=== PATIENT | male | born 1970 ===

== ENCOUNTER 2020-07-15 14:39 | Emergency (ER) | payer OTHER, SELFPAY ==
--- NOTE | ~2020-07-15 | XR_ITS ---
EXAMINATION: XR LUMBOSACRAL SPINE CLINICAL INFORMATION: Work injury, back pain COMPARISON: None TECHNIQUE: Three views of the lumbosacral spine. FINDINGS: There is normal segmentation with 5 nonrib-bearing lumbar vertebrae of normal height and normal lumbar lordosis. There is no lumbar vertebral compression or fracture or destructive process. There are degenerative disc changes L5-S1 with mild disc narrowing and endplate sclerosis and anterior vertebral spurring. There is also mild disc narrowing at L4-L5. The SI joints and visualized sacrum are unremarkable. XR/XR lumbar spine 2-3V IMPRESSION: 1. Degenerative disc changes L5-S1 with disc narrowing and vertebral spurring. Mild disc narrowing L4-L5. 2. No vertebral compression or spondylolisthesis.
[2020-07-15 14:44] VITALS: BP 158/84; PULSE 94; O2SAT 98
[2020-07-15 15:36] VITALS: BP 134/69; PULSE 84; RESP 16; TEMP 36.7; O2SAT 99; BMI 30.4
--- NOTE | 2020-07-15 16:02 | ED_ITS ---
HPI - Back Pain/Injury General Chief Complaint: Back Pain/Injury Stated Complaint: BACK PAIN S/P LIFTING HEAVY OBJECT Time Seen by Provider: 07/15/20 16:00 Source: patient Mode of arrival: ambulatory Limitations: no limitations History of Present Illness HPI Narrative: 50-year-old male with past medical history of herniated disc status post surgical repair here with low back pain status post injury at work. Per patient he went to lift a walker and twisted to the left with immediate pain in his low back which radiates down into the left buttocks and down the left leg with intermittent numbness and tingling. No saddle anesthesia. No bowel or bladder incontinence. The patient is ambulatory. Related Data Previous Rx's Medication Instructions Recorded cyclobenzaprine 10 mg PO Q8H PRN #10 tab 07/15/20 lidocaine [Lidoderm] 1 patch TOPICAL DAILY #15 ea 07/15/20 naproxen 500 mg PO BID PRN #30 tab 07/15/20 prednisone 40 mg PO DAILY #10 tab 07/15/20 Allergies Allergy/AdvReac Type Severity Reaction Status Date / Time No Known Allergies Allergy Verified 07/15/20 15:36 Review of Systems Review of Systems: Yes all other systems are reviewed and are negative Constitutional: Constitutional: Reports no additional constitutional complaints, Denies body ache(s), Denies chills, Denies fever(s), Denies headache(s) and Denies weakness Eyes: Eyes: Reports no additional eye complaints and Denies change in vision ENT: Reports system reviewed and no additional complaints, except as documented, Denies dizziness, Denies headache(s), Denies nasal congestion, Denies nasal discharge and Denies neck pain Cardiovascular: Cardiovascular: Reports no additional cardiovascular complaints, Denies chest pain, Denies leg edema and Denies dyspnea Respiratory: Respiratory: Reports no additional respiratory complaints, Denies cough and Denies dyspnea Gastrointestinal: Gastrointestinal: Reports no additional gastrointestinal complaints, Denies abdominal pain, Denies diarrhea, Denies nausea and Denies vomiting Genitourinary: Genitourinary: Denies urinary incontinence Musculoskeletal: Musculoskeletal: Reports no additional musculoskeletal complaints, Reports back pain, Denies arthralgias, Denies joint swelling, Denies neck pain, Denies numbness and Denies tingling Integumentary/Breasts: Skin/Breast: Reports system reviewed and no additional complaints, except as docu and Denies rash Neurologic: Reports system reviewed and no additional complaints, except as documented, Denies Abnormal speech present, Denies dizziness, Denies headache(s), Denies numbness, Denies tingling and Denies weakness PMFSH Past Medical History Attestation statement: The following information was validated with the patient. Source: old records reviewed and nursing notes reviewed Medical History Disc herniation HTN (hypertension) Surgical History Previous back surgery Social History Social History Alcohol intake: never Smoked in Last 30 Days: No Use of substances other than those prescribed or required for medical reasons: No Any prior treatment program specific to substance use: No Advance Directives: No Advance Directives Information Provided: No Physical Exam Vital Signs: Vital Signs: Last Vital Signs Temp 98.1 F 07/15/20 15:36 Pulse 84 07/15/20 15:36 Resp 16 07/15/20 15:36 BP 134/69 07/15/20 15:36 Pulse Ox 99 07/15/20 15:36 Body Mass Index 30.4 Const: General: cooperative, healthy appearing, comfortable and no acute distress Orientation/consciousness: patient oriented x3 Limitations: no limitations HENMT: Head: Yes normal to inspection Ears: hearing grossly normal bilaterally General nose exam: Normal external nose present Face and sinus: Yes normal facial exam Mouth: Normal oral and palatal mucosa present Throat: Yes posterior oropharynx normal Eyes: General: appearance normal, both eyes and all related structures Pupils: Equal, round and reactive pupils present Neck: Neck: Yes normal visual inspection Chest: Chest palpation & inspection: normal inspection of the chest Resp: Effort & Inspection: normal respiratory effort Auscultation: clear to auscultation bilaterally Cardio: Rate: regular rate Rhythm: regular rhythm Peripheral pulses: Peripheral pulses 2+ throughout GI: Inspection: Yes normal to inspection Palpation (GI): Soft to palpation and nontender Auscultation: normal bowel sounds Back/Spine/Pelvis: Other: Mild lumbar midline tenderness with no step-offs or deformities. Pain over the lumbar lateral lower spine and left buttocks with radiation down the posterior left thigh. Pain with straight leg raise Thoracic/Lumbar Spine: thoracic and lumbar spine normal to inspection Skin: General skin exam: no rashes or lesions noted Neuro: General: patient oriented x3, no focal motor deficits and normal sensation to monofilament Cranial nerves: Yes Equal, round and reactive pupils present Cognition (Neuro): normal cognition Speech: No Abnormal speech present Gait exam (Neuro): Normal gait present Motor exam (neuro): 5/5 motor strength present throughout Sensory Exam: Normal double simultaneous stimulation for sensation Deep tendon reflexes (DTR's): Right patellar reflex intensity grade: 3+ and Left patellar reflex intensity grade: 3+ Coordination: [id number] test normal and [id number] test normal Extrem: General: Yes normal to inspection Course Course Course Narrative: Low back pain status post injury at work. Has midline tenderness so will check imaging. Provide analgesia and reassess. 174-x-rays show no acute abnormality. Due to history can consider herniated disc. Recommend follow-up with [facility] for further evaluation and possible MRI. No neurological deficits. No red flag symptoms. Reviewed worrisome signs and symptoms and when to return to the emergency department. Comfortable discharge home. MDM - Back Pain/Injury Medical Records Attestation: I reviewed the patient's medical records. Lab Data Attestation: I reviewed the patient's lab results. Imaging Data lumbar xray: Attestation: I personally reviewed and interpreted this imaging study as follows: Radiologist's impression: EXAMINATION: XR LUMBOSACRAL SPINE CLINICAL INFORMATION: Work injury, back pain COMPARISON: None TECHNIQUE: Three views of the lumbosacral spine. FINDINGS: There is normal segmentation with 5 nonrib-bearing lumbar vertebrae of normal height and normal lumbar lordosis. There is no lumbar vertebral compression or fracture or destructive process. There are degenerative disc changes L5-S1 with mild disc narrowing and endplate sclerosis and anterior vertebral spurring. There is also mild disc narrowing at L4-L5. The SI joints and visualized sacrum are unremarkable. XR/XR lumbar spine 2-3V IMPRESSION: 1. Degenerative disc changes L5-S1 with disc narrowing and vertebral spurring. Mild disc narrowing L4-L5. 2. No vertebral compression or spondylolisthesis. Discharge Plan Discharge Clinical Impression: Strain of lumbar region Patient Disposition: Home, Self-Care Instructions: Low Back Strain (ED), Lower Back Exercises (ED) Additional Instructions: Heat or ice Gentle stretching Follow-up with [facility] [phone] Prescriptions: New naproxen 500 mg tablet 500 mg PO BID PRN (Reason: pain) Qty: 30 RF: 0 cyclobenzaprine 10 mg tablet 10 mg PO Q8H PRN (Reason: muscle spasm) Qty: 10 RF: 0 lidocaine [Lidoderm] 5 % adhesive patch,medicated 1 patch topical DAILY Qty: 15 RF: 0 prednisone 20 mg tablet 40 mg PO DAILY Qty: 10 RF: 0 Referrals: Hailee Obrien MD [Primary Care Provider] - 2 days Stand Alone Forms: Work/School Release Interventions: ED Discharge Assessment Last Done: 07/15/20 17:37 Discharge Date/Time: 07/15/20 17:47 Print Language: Portuguese
[2020-07-15] MEDS: Ketorolac Tromethamine 60 MG/2 ML VIAL IM (16:34)
== END 2020-07-15 17:47 | disposition home or self-care (01) ==
PROVIDERS: Emergency Provider Emergency Medicine Emergency Medical Services; PCP Internal Medicine
DX: S39.012A Strain of muscle, fascia and tendon of lower back, initial encounter (principal); X50.0XXA Overexertion from strenuous movement or load, initial encounter; X50.3XXA Overexertion from repetitive movements, initial encounter; Y93.9 Activity, unspecified; Y92.9 Unspecified place or not applicable; Y99.0 Civilian activity done for income or pay; Z79.899 Other long term (current) drug therapy
CPT/HCPCS: 72100; 96372; 99284; J1885

== ENCOUNTER 2020-07-19 18:01 | Emergency (ER) | payer OTHER, SELFPAY ==
--- NOTE | 2020-07-19 | ECG_ITS ---
Test Reason : BACK PAIN Blood Pressure : / mmHG Vent. Rate : 092 BPM Atrial Rate : 092 BPM P-R Int : 144 ms QRS Dur : 096 ms QT Int : 348 ms P-R-T Axes : 052 -38 016 degrees QTc Int : 430 ms Normal sinus rhythm Left axis deviation Voltage criteria for left ventricular hypertrophy Abnormal ECG No previous ECGs available Referred By: Generic ED Physician Electronically Signed By:LUCIE MOSES
--- NOTE | ~2020-07-19 | CT_ITS ---
EXAMINATION: CT HEAD WITHOUT CONTRAST CLINICAL INFORMATION: Numbness, headache COMPARISON: None TECHNIQUE: Contiguous axial imaging was performed from the skull base to vertex without intravenous administration of contrast. This CT examination was performed using dose optimization techniques as appropriate, variously including the following: *Automated exposure control *Adjustment of mA and/or kV according to patient size (this includes techniques or standardized protocols for targeted exams where dose is matched to indication/reason for exam; i.e. extremities or head) *Use of iterative reconstruction technique DLP: 742 mGy-cm FINDINGS: There is no evidence of acute intracranial hemorrhage or territorial infarction. No abnormal mass effect or midline shift is seen. Gee to white matter differentiation is well preserved. No extra-axial fluid collections are identified. The ventricles are normal in size. There is no abnormal attenuation within the brain parenchyma. The osseous structures and soft tissues are normal. The mastoid air cells and visualized portions of the paranasal sinuses are well aerated. CT/CT head/brain wo con IMPRESSION: No acute intracranial pathology.
[2020-07-19 18:37] VITALS: BP 138/78; PULSE 96; RESP 16; TEMP 36.9; O2SAT 98; BMI 30.4
--- NOTE | 2020-07-19 20:28 | ED.GENADULT ---
HPI - General Adult General Chief complaint: General Medical Stated complaint: back/leg pain Time Seen by Provider: 07/19/20 20:38 Source: patient Mode of arrival: ambulatory Limitations: no limitations History of Present Illness HPI narrative: 50-year-old male presents with lower back injury sustained at work several days ago. Was evaluated in this emergency department and given cyclobenzaprine and prednisone. Patient reports multiple vague complaints, states that he feels like he might be having a heart attack, has tremors in in his hands and feels jittery, and has a headache with numbness and tingling to his hands and feet. He does not report any fevers or chills, palpitations, chest pain or pressure, abdominal pain, abdominal distention, dysuria, hematuria, symptoms indicating cauda equina, loss of balance, edema or any other concerning symptoms. Onset (ago): day(s) Severity: moderate Severity scale (1-10): 6 Pain Consistency: constant Relieving factors: none Exacerbating factors: movement Related Data Previous Rx's Medication Instructions Recorded cyclobenzaprine 10 mg PO Q8H PRN #10 tab 07/15/20 lidocaine [Lidoderm] 1 patch TOPICAL DAILY #15 ea 07/15/20 naproxen 500 mg PO BID PRN #30 tab 07/15/20 prednisone 40 mg PO DAILY #10 tab 07/15/20 Allergies Allergy/AdvReac Type Severity Reaction Status Date / Time No Known Allergies Allergy Verified 07/19/20 18:37 Review of Systems Review of Systems: Constitutional: No Weight loss, No Fever, No Chills, positive headache ENT/Mouth: No Hearing loss, No Ear Pain, No Nasal Congestion, No Sinus Pain, No Hoarseness, No sore throat, No Rhinorrhea, No Swallowing Difficulty Cardiovascular: No Chest Pain, No SOB Respiratory: No Cough, No Dyspnea Gastrointestinal: No Nausea, No Vomiting, No Diarrhea, No abdominal Pain, No Hematochezia, No Melena Genitourinary: No Dysuria, No Urinary Frequency, No Hematuria, No Urinary Incontinence, Musculoskeletal: positive back pain, positive numbness and tingling to extremities Skin: No Skin Lesions, No rash Neuro: No Weakness, No Numbness, No Paresthesias, no loss of bowel or bladder incontinence, no saddle anesthesia Yes all other systems are reviewed and are negative PMFSH Past Medical History Attestation statement: The following information was validated with the patient. Source: old records reviewed Medical History Disc herniation HTN (hypertension) Surgical History Previous back surgery Social History Social History Alcohol intake: never Advance Directives: No Advance Directives Information Provided: No Physical Exam Vital Signs: Vital Signs: Last Vital Signs Temp 97.7 F 07/19/20 23:58 Pulse 79 07/19/20 23:58 Resp 18 07/19/20 23:58 BP 148/70 H 07/19/20 23:58 Pulse Ox 98 07/19/20 23:58 Body Mass Index 30.4 Appearance: Alert. Oriented X3. No acute distress. Head: Normal external exam. Normocephalic. Atraumatic. No Pineda signs noted. No raccoon eyes noted Eyes: PERRLA. EOMI. Conjunctiva and sclera normal. Eyelids normal. ENT: TM's Normal. Pharynx normal. Uvula midline. Moist mucous membranes. No trismus noted. No drooling noted. No muffled voice noted. Neck: Normal inspection. Neck supple. No adenopathy. Thyroid Normal. No meningeal signs. No neck mass noted. CVS: Normal heart rate and rhythm. Heart sound normal. No murmurs noted. Pulses equal to all extremities. Respiratory: No respiratory distress. Painless inspiration. Breath sounds normal. No wheezes/rales/rhonchi noted. Chest nontender. No accessory muscle usage noted or decreased air movement noted. Abdomen: Soft and nontender. Bowel sounds normal in all 4 quadrants. No distention noted. No organomegaly noted. No visible injury noted. Back: No CVA tenderness. Full range of motion noted. Skin: Skin warm and dry. Normal skin color. Normal skin turgor. No rashes/lesions/lacerations noted. Extremities: No lower extremity edema. Extremities exhibit normal range of motion. Extremities nontender. Neuro: cranial nerves 2-12 intact, no focal neural deficits, strength 5/5 to all extremities, No motor deficit. No sensory deficit. Reflexes normal. NIH Stroke Scale Internal: Initial- Upon Arrival Level of Consciousness: Alert Level of Consciousness Questions: Answers both questions correctly Level of Consciousness Commands: Performs both tasks correctly Best Gaze: Normal Visual: No visual loss Facial Palsy: Normal Motor Arm (Right): No drift Motor Arm (Left): No drift Motor Leg (Right): No drift Motor Leg (Left): No drift Limb Ataxia: Absent Sensory: Normal Best Language: No aphasia Dysarthia: Normal Extinction and Inattention: No abnormality Score: 0 Course Course Course Narrative: 50-year-old male presents with complaints. Was seen several days ago for lower back injury sustained at work. He was asked to follow up with work [facility] however he feels that his symptoms are severe enough to return to the emergency department. He states ?I feel like I am having a heart attack? although he is not describing any chest pain or pressure, palpitations, diaphoresis, or any other concerning symptoms. He does state that he has a headache feels numbness tingling and tremors throughout his extremities equally. Will rule out ACS and CVA. Patient does not have any focal neural deficits, stroke scale is 0, strength 5/5 to all extremities, equal sensation, gait well balanced well coordinated, no indication of cerebellar deficit. Negative Romberg. EKG normal sinus, troponins negative, CT scan of head negative for acute findings requiring emergent intervention. Labs indicated elevated blood sugar which is consistent with his prednisone use. I feel that these symptoms could be related to side effects associated prednisone. Patient has completed his course. Detailed discussion with patient stating that this is not an allergic reaction. palliative senior np utilized for all correspondence. Google translate utilized for discharge instructions. Medical Decision Making Differential Diagnosis Differential Diagnosis: CVA, ACS, adverse reaction from prednisone, Medical Records Medical records reviewed: Yes I reviewed the patient's medical records. Lab Data Lab results reviewed: Yes I reviewed the patient's lab results. Result diagrams: 07/19/20 21:30 07/19/20 21:30 Labs: Lab Results 07/19/20 07/19/20 07/19/20 Range/Units 21:07 21:30 21:30 WBC 9.6 (4.8-10.8) X10*3/uL RBC 4.89 (4.60-5.80) X10*6/uL Hgb 15.0 (14.0-18.0) g/dl Hct 45.4 (42-52) % MCV 92.8 (80-98) fL MCH 30.7 (27.0-33.0) pg MCHC 33.0 (31.0-36.0) g/dl RDW 12.8 (11.0-16.0) % Plt Count 251 (160-400) X10*3/uL MPV 10.3 (9.4-12.4) fL Immature Gran % (Auto) 1.6 H (0.0-0.4) % Neut % (Auto) 76.5 H (45-73) % Lymph % (Auto) 13.9 L (20-40) % [place] % (Auto) 7.4 (2-11) % Eos % (Auto) 0.1 (0-4) % Baso % (Auto) 0.5 (0-2) % Lymph # (Auto) 1.3 (1.2-4.9) X10*3/uL [place] # (Auto) 0.7 (0.1-1.2) X10*3/uL Eos # (Auto) 0.0 (0.0-0.4) X10*3/uL Baso # (Auto) 0.1 (0.0-0.2) X10*3/uL Abs Immat Gran (auto) 0.15 H (0.00-0.03) X10*3/uL Absolute Neuts (auto) 7.3 (2.0-8.3) X10*3/uL Absolute Nucleated RBC 0.000 (0.0-0.012) X10*3/uL Nucleated RBC % (auto) 0.0 (0.0-0.2) /100WBC Sodium 141 (135-145) mmol/L Potassium 4.8 (3.3-5.1) mmol/L Chloride 102 (96-108) mmol/L Carbon Dioxide 28 (22-29) mmol/L Anion Gap 16 (12-20) BUN 19 H (9-16) mg/dL Creatinine 0.84 (0.5-1.4) mg/dL Estim Creat Clear Calc 117.6 Estimated GFR > 60 POC Glucose 119 H (60-115) mg/dL Random Glucose 111 (60-115) mg/dL Calcium 9.1 (8.4-10.2) mg/dL Troponin I High Sens (<3.5-35.0) ng/L Urine Color Urine Appearance Urine pH (5.0-8.0) Ur Specific [place] (1.005-1.025) Urine Protein (NEG-TRACE) MG/DL Urine Glucose (UA) (NEG) MG/DL Urine Ketones (NEG) MG/DL Urine Blood (NEG) Urine Nitrite (NEG) Ur Leukocyte Esterase (NEG) 07/19/20 07/19/20 Range/Units 21:30 21:30 WBC (4.8-10.8) X10*3/uL RBC (4.60-5.80) X10*6/uL Hgb (14.0-18.0) g/dl Hct (42-52) % MCV (80-98) fL MCH (27.0-33.0) pg MCHC (31.0-36.0) g/dl RDW (11.0-16.0) % Plt Count (160-400) X10*3/uL MPV (9.4-12.4) fL Immature Gran % (Auto) (0.0-0.4) % Neut % (Auto) (45-73) % Lymph % (Auto) (20-40) % [place] % (Auto) (2-11) % Eos % (Auto) (0-4) % Baso % (Auto) (0-2) % Lymph # (Auto) (1.2-4.9) X10*3/uL [place] # (Auto) (0.1-1.2) X10*3/uL Eos # (Auto) (0.0-0.4) X10*3/uL Baso # (Auto) (0.0-0.2) X10*3/uL Abs Immat Gran (auto) (0.00-0.03) X10*3/uL Absolute Neuts (auto) (2.0-8.3) X10*3/uL Absolute Nucleated RBC (0.0-0.012) X10*3/uL Nucleated RBC % (auto) (0.0-0.2) /100WBC Sodium (135-145) mmol/L Potassium (3.3-5.1) mmol/L Chloride (96-108) mmol/L Carbon Dioxide (22-29) mmol/L Anion Gap (12-20) BUN (9-16) mg/dL Creatinine (0.5-1.4) mg/dL Estim Creat Clear Calc Estimated GFR POC Glucose (60-115) mg/dL Random Glucose (60-115) mg/dL Calcium (8.4-10.2) mg/dL Troponin I High Sens < 3.5 (<3.5-35.0) ng/L Urine Color YELLOW Urine Appearance CLEAR Urine pH 6.5 (5.0-8.0) Ur Specific [place] 1.025 (1.005-1.025) Urine Protein NEG (NEG-TRACE) MG/DL Urine Glucose (UA) NEG (NEG) MG/DL Urine Ketones NEG (NEG) MG/DL Urine Blood NEG (NEG) Urine Nitrite NEG (NEG) Ur Leukocyte Esterase NEG (NEG) Imaging Data CT scan - head: Attestation: I personally reviewed and interpreted this imaging study as follows: Radiologist's impression: EXAMINATION: CT HEAD WITHOUT CONTRAST CLINICAL INFORMATION: Numbness, headache COMPARISON: None TECHNIQUE: Contiguous axial imaging was performed from the skull base to vertex without intravenous administration of contrast. This CT examination was performed using dose optimization techniques as appropriate, variously including the following: *Automated exposure control *Adjustment of mA and/or kV according to patient size (this includes techniques or standardized protocols for targeted exams where dose is matched to indication/reason for exam; i.e. extremities or head) *Use of iterative reconstruction technique DLP: 742 mGy-cm FINDINGS: There is no evidence of acute intracranial hemorrhage or territorial infarction. No abnormal mass effect or midline shift is seen. Gee to white matter differentiation is well preserved. No extra-axial fluid collections are identified. The ventricles are normal in size. There is no abnormal attenuation within the brain parenchyma. The osseous structures and soft tissues are normal. The mastoid air cells and visualized portions of the paranasal sinuses are well aerated. CT/CT head/brain wo con IMPRESSION: No acute intracranial pathology. ECG Data Attestation: I personally reviewed and interpreted this ECG as follows: Prior ECG tracings: not available for review Interpretation: Ventricular rate 92 beats per minute, TN 144, QRS 96, QT 348, QTC 430, normal sinus rhythm, left axis deviation, low voltage criteria for LVH. No indication of ST elevation or depression, prior EKGs unavailable secondary to system 130 error. July 19, 2020, time 7:05 p.m. Scores Heart Score History: -0- slightly suspicious ECG: -1- non specific repolarization disturbance Age: -1- >45 - <65 Risk factory: -1- 1 or 2 risk factors Troponin: -0- < or = normal limit Score: 3 Risk: 1.7% Discharge Plan Discharge Clinical Impression: Medication side effect Patient Disposition: Home, Self-Care Instructions: Normal Exam (ED) Additional Instructions: Te evaluaron por entumecimiento, hormigueo y dolor de ryanne. La tomograf?a computarizada de wu ryanne fue negativa para hallazgos agudos. Es posible que los s?ntomas est?n relacionados con el uso de prednisona. Lo que wu descripci?n son efectos secundarios del medicamento esteroide llamado prednisona que se le alyse en wu ?ltima visita. Si nuestros an?lisis de daniel lulú normales, wu electrocardiograma era normal, emperatriz enzimas card?acas son negativas. Por favor, shawna un seguimiento con la conexi?n de trabajo. Es posible que necesites fisioterapia para el dolor lumbar. Contin?e todos los medicamentos excepto la prednisona. Eli por elegir juancarlos departamento de emergencias para wu evaluaci?n. Por favor, shawna un seguimiento con el m?dico de atenci?n primaria seg?n sea necesario. Regrese al servicio de emergencias para cualquier s?ntoma nuevo, preocupante o que empeore. You were evaluated for numbness, tingling, and headache. CT scan of her head was negative for acute findings. Your symptoms might be related to prednisone use. What your describing are side effects of the steroid medication called prednisone which was given to you on your last visit. Your blood tests were normal, your EKG was normal, your cardiac enzymes are negative. Please follow-up with [facility]. You may need physical therapy for lower back pain. Continue all medications except for the prednisone. Thank you for choosing this emergency department for evaluation. Please follow-up with primary care physician as needed. Return to the emergency department for any new, concerning, or worsening symptoms. Prescriptions: No Action naproxen 500 mg tablet 500 mg PO BID PRN (Reason: pain) Qty: 30 RF: 0 cyclobenzaprine 10 mg tablet 10 mg PO Q8H PRN (Reason: muscle spasm) Qty: 10 RF: 0 lidocaine [Lidoderm] 5 % adhesive patch,medicated 1 patch topical DAILY Qty: 15 RF: 0 prednisone 20 mg tablet 40 mg PO DAILY Qty: 10 RF: 0 Interventions: ED Discharge Assessment Last Done: 07/20/20 00:24 Discharge Date/Time: 07/20/20 00:26
[2020-07-19 21:04] VITALS: BP 142/86; PULSE 94; RESP 16; TEMP 37.1; O2SAT 99
[2020-07-19 21:11] LABS: Glucose, Whole Blood 119 mg/dL (60-115)
--- NOTE | 2020-07-19 21:34 | PC.NURSE ---
POC, labs and urine obtained by wind technician. Awaiting results.
[2020-07-19 21:38] LABS: Basophils Absolute Auto 0.1 X10*3/uL (0.0-0.2); Basophils Percent Auto 0.5 % (0-2); Eosinophils Percent Auto 0.1 % (0-4); Hematocrit 45.4 % (42-52); Imm Gran Abs Auto 0.15 X10*3/uL (0.00-0.03); Imm Gran Pct Auto 1.6 % (0.0-0.4); Lymphocytes Absolute Auto 1.3 X10*3/uL (1.2-4.9); Lymphocytes Percent Auto 13.9 % (20-40); MANUAL DIFF FLAG NO; Mean Corpuscular Hemoglobin 30.7 pg (27.0-33.0); Mean Corpuscular Volume 92.8 fL (80-98); Mean Platelet Volume 10.3 fL (9.4-12.4); Monocytes Absolute Auto 0.7 X10*3/uL (0.1-1.2); Monocytes Percent Auto 7.4 % (2-11); Neutrophils Absolute Auto 7.3 X10*3/uL (2.0-8.3); Neutrophils Percent Auto 76.5 % (45-73); Platelet Count 251 X10*3/uL (160-400); Red Blood Count 4.89 X10*6/uL (4.60-5.80); Red Cell Distribution Width 12.8 % (11.0-16.0); White Blood Count 9.6 X10*3/uL (4.8-10.8)
[2020-07-19 21:42] LABS: Glucose Urine UA NEG (NEG); Leukocyte Esterase Urine NEG (NEG); Nitrite Urine NEG (NEG); PH 6.5 (5.0-8.0); Specific Gravity - Urine 1.025 (1.005-1.025); Urine Blood NEG (NEG); Urine Ketones NEG (NEG); Urine Protein NEG (NEG-TRACE)
[2020-07-19 21:43] LABS: Appearance Urine CLEAR; Color Urine YELLOW
[2020-07-19 21:49] VITALS: BP 155/79; PULSE 84; RESP 16; TEMP 37; O2SAT 99
[2020-07-19 21:55] LABS: Anion Gap 16 (12-20); Blood Urea Nitrogen 19 mg/dL (9-16); Calcium 9.1 mg/dL (8.4-10.2); Carbon Dioxide 28 mmol/L (22-29); Chloride 102 mmol/L (96-108); Creatinine Clr Calc Pharmacy 117.6; Estimated Glomerular Filt Rate > 60; Glucose Random 111 mg/dL (60-115); Potassium 4.8 mmol/L (3.3-5.1); Sodium 141 mmol/L (135-145)
[2020-07-19 22:03] LABS: Troponin-I High Sensitivity < 3.5 ng/L (<3.5-35.0)
--- NOTE | 2020-07-19 23:55 | PC.NURSE ---
CASHIER AND SALESPERSON and resource management specialist at bedside discussing results and plan of care.
[2020-07-19 23:58] VITALS: BP 148/70; PULSE 79; RESP 18; TEMP 36.5; O2SAT 98
== END 2020-07-20 00:26 | disposition home or self-care (01) ==
PROVIDERS: Nurse Practitioner Family; Emergency Provider Emergency Medicine; PCP Internal Medicine
DX: G25.1 Drug-induced tremor (principal); G44.40 Drug-induced headache, not elsewhere classified, not intractable; T38.0X5A Adverse effect of glucocorticoids and synthetic analogues, initial encounter; Y92.009 Unspecified place in unspecified non-institutional (private) residence as the place of occurrence of the external cause; I10 Essential (primary) hypertension; I48.0 Paroxysmal atrial fibrillation; F41.9 Anxiety disorder, unspecified; G57.00 Lesion of sciatic nerve, unspecified lower limb
CPT/HCPCS: 36415; 70450; 80048; 81003; 82947; 84484; 85025; 93005; 99283; 99284

== ENCOUNTER 2020-07-23 08:16 | Outpatient (REF) | payer OTHER, SELFPAY ==
[2020-07-23 09:42] LABS: MANUAL DIFF FLAG NO
[2020-07-23 09:46] LABS: Basophils Absolute Auto 0.1 X10*3/uL (0.0-0.2); Basophils Percent Auto 1.3 % (0-2); Eosinophils Absolute Auto 0.2 X10*3/uL (0.0-0.4); Hematocrit 43.4 % (42-52); Hemoglobin 14.5 g/dl (14.0-18.0); Imm Gran Abs Auto 0.19 X10*3/uL (0.00-0.03); Imm Gran Pct Auto 3.6 % (0.0-0.4); Lymphocytes Absolute Auto 1.6 X10*3/uL (1.2-4.9); Lymphocytes Percent Auto 29.4 % (20-40); Mean Corpuscular HGB Conc 33.4 g/dl (31.0-36.0); Mean Corpuscular Hemoglobin 31.3 pg (27.0-33.0); Mean Corpuscular Volume 93.7 fL (80-98); Mean Platelet Volume 10.8 fL (9.4-12.4); Monocytes Absolute Auto 0.6 X10*3/uL (0.1-1.2); Monocytes Percent Auto 11.3 % (2-11); Neutrophils Absolute Auto 2.7 X10*3/uL (2.0-8.3); Neutrophils Percent Auto 51.4 % (45-73); Platelet Count 226 X10*3/uL (160-400); Red Blood Count 4.63 X10*6/uL (4.60-5.80); White Blood Count 5.3 X10*3/uL (4.8-10.8)
[2020-07-23 10:12] LABS: Alanine Aminotransferase 32 U/L (0-40); Albumin Level 4.2 g/dL (3.5-5.0); Alkaline Phosphatase 58 U/L (39-117); Anion Gap 12 (12-20); Aspartate Amino Transferase 19 U/L (5-37); Bilirubin Total 0.4 mg/dL (0.0-1.0); Blood Urea Nitrogen 22 mg/dL (9-16); Calcium 9.1 mg/dL (8.4-10.2); Carbon Dioxide 30 mmol/L (22-29); Chloride 102 mmol/L (96-108); Cholesterol 196 mg/dL; Estimated Glomerular Filt Rate > 60; Glucose Fasting 95 mg/dL (60-99); HDL Cholesterol 51 mg/dL; LDL Cholesterol Calculated 127 mg/dl; Potassium 5.4 mmol/L (3.3-5.1); Sodium 139 mmol/L (135-145); Total Protein 7.1 g/dL (6.5-8.0); Triglycerides 94 mg/dL
[2020-07-23 10:34] LABS: Thyroid Stimulating Hormone 0.86 uIU/mL (0.32-4.0)
== END 2020-07-23 08:17 | disposition home or self-care (01) ==
LOC: HO.LAB 08:16
PROVIDERS: PCP Internal Medicine; Visit Provider Internal Medicine
DX: D64.9 Anemia, unspecified (principal); I48.0 Paroxysmal atrial fibrillation; I10 Essential (primary) hypertension; E78.5 Hyperlipidemia, unspecified
CPT/HCPCS: 36415; 80053; 80061; 84443; 85025

== ENCOUNTER 2020-07-23 12:46 | Emergency (ER) | payer OTHER, SELFPAY ==
--- NOTE | ~2020-07-23 | XR_ITS ---
EXAMINATION: XR CHEST CLINICAL INFORMATION: Chest pain COMPARISON: None TECHNIQUE: Frontal view of the chest was obtained. FINDINGS: No convincing evidence for an acute process. No obvious failure or infiltrate. There is no effusion. Likely degenerative change at the first costochondral articulations. The mediastinal contours are within normal limits. XR/XR chest 1V IMPRESSION: No convincing evidence for an acute process.
[2020-07-23 12:50] VITALS: BP 143/85; PULSE 87; RESP 18; TEMP 36.7; O2SAT 99; BMI 73.7
[2020-07-23 16:35] VITALS: BP 144/72; PULSE 99; RESP 16; O2SAT 100
[2020-07-23 16:51] LABS: MANUAL DIFF FLAG NO
[2020-07-23 16:55] LABS: Basophils Absolute Auto 0.1 X10*3/uL (0.0-0.2); Basophils Percent Auto 0.7 % (0-2); Eosinophils Absolute Auto 0.2 X10*3/uL (0.0-0.4); Eosinophils Percent Auto 2.1 % (0-4); Hematocrit 45.6 % (42-52); Hemoglobin 14.9 g/dl (14.0-18.0); Imm Gran Abs Auto 0.15 X10*3/uL (0.00-0.03); Imm Gran Pct Auto 2.1 % (0.0-0.4); Lymphocytes Absolute Auto 2.2 X10*3/uL (1.2-4.9); Lymphocytes Percent Auto 31.4 % (20-40); Mean Corpuscular HGB Conc 32.7 g/dl (31.0-36.0); Mean Corpuscular Hemoglobin 30.2 pg (27.0-33.0); Mean Corpuscular Volume 92.3 fL (80-98); Monocytes Absolute Auto 0.7 X10*3/uL (0.1-1.2); Monocytes Percent Auto 9.6 % (2-11); Neutrophils Absolute Auto 3.9 X10*3/uL (2.0-8.3); Neutrophils Percent Auto 54.1 % (45-73); Platelet Count 240 X10*3/uL (160-400); Red Blood Count 4.94 X10*6/uL (4.60-5.80); White Blood Count 7.1 X10*3/uL (4.8-10.8)
[2020-07-23 17:25] LABS: Troponin-I High Sensitivity < 3.5 ng/L (<3.5-35.0)
[2020-07-23 17:43] LABS: Anion Gap 19 (12-20); Blood Urea Nitrogen 19 mg/dL (9-16); Calcium 9.4 mg/dL (8.4-10.2); Carbon Dioxide 23 mmol/L (22-29); Chloride 102 mmol/L (96-108); Creatinine Clr Calc Pharmacy 187.3; Estimated Glomerular Filt Rate > 60; Glucose Random 88 mg/dL (60-115); Potassium 4.7 mmol/L (3.3-5.1); Sodium 139 mmol/L (135-145)
[2020-07-23 18:58] VITALS: BP 145/76; PULSE 92; RESP 20; O2SAT 98
--- NOTE | 2020-07-23 19:48 | ED.CHESTPAIN ---
HPI - Chest Pain General Chief Complaint: Chest Pain Stated Complaint: CHEST PAIN Time Seen by Provider: 07/23/20 19:47 History of Present Illness HPI narrative: Patient is a 50-year-old male presents today with having left-sided chest pressure that lasted for about 15 minutes. Not associated with diaphoresis. It was constant. Patient was driving at the time. Patient feels slight shortness of breath. No coughing or congestion or upper respiratory symptoms. No leg swelling. No history of blood clots. Patient denies any fever chills. Positive history of hypertension. Patient is not a smoker. No high cholesterol. No recreational drug use. No family history of heart attack. No history of ME himself. Related Data Previous Rx's Medication Instructions Recorded lisinopril 30 mg tablet 30 mg PO DAILY 90 Days #90 tab 07/22/20 metoprolol succinate 25 mg 25 mg PO DAILY 90 Days #90 tab 07/22/20 tablet,extended release 24 hr Allergies Allergy/AdvReac Type Severity Reaction Status Date / Time No Known Allergies Allergy Verified 07/22/20 16:03 Review of Systems Review of Systems: Constitutional: No Weight loss, No Fever, No Chills, No Night Sweats, No Fatigue, No Malaise ENT/Mouth: No Hearing loss, No Ear Pain, No Nasal Congestion, No Sinus Pain, No Hoarseness, No sore throat, No Rhinorrhea, No Swallowing Difficulty Eyes: No Eye Pain, No Swelling, No Redness, No Foreign Body, No Discharge, No Vision Changes Cardiovascular: Positive chest pressure, No SOB, No Dyspnea on Exertion, No Orthopnea, No Edema, No Palpitations Respiratory: No Cough, No Sputum, No Wheezing, No Smoke Exposure, No Dyspnea Gastrointestinal: No Nausea, No Vomiting, No Diarrhea, No Constipation, No abdominal Pain, No Hematochezia, No Melena Genitourinary: no irregular bleeding, No Dysuria, No Urinary Frequency, No Hematuria, No Urinary Incontinence, No Urgency, No Flank Pain, No Urinary Flow Changes, No Hesitancy Musculoskeletal: No joint pain, No Myalgias, No Joint Swelling Skin: No Skin Lesions, No rash Neuro: No Weakness, No Numbness, No Paresthesias, No Loss of Consciousness, No Dizziness, No Headache Psych: No Anxiety/Panic, No Depression, No SI/HI/AH/VH, No Social Issues, Heme/Lymph: No Bruising, No Bleeding,No Lymphadenopathy Endocrine: No Polyuria, No Polydipsia, No Temperature Intolerance [facility] Past Medical History Attestation statement: The following information was validated with the patient. Medical History Anxiety Disc herniation Essential hypertension HTN (hypertension) Paroxysmal atrial fibrillation Piriformis syndrome Surgical History Previous back surgery Family History Family History Mother Hypertension Alzheimer disease Father Hypertension Hx of colon cancer, stage III Social History Social History Alcohol intake: current Alcohol intake frequency: a few times a month Alcohol type: beer Smoking Status: Never smoker Tobacco Type: Cigarette Use of substances other than those prescribed or required for medical reasons: No Advance Directives: No Advance Directives Information Provided: No Physical Exam Vital Signs: Vital Signs: Last Vital Signs Temp 98.0 F 07/23/20 12:50 Pulse 92 07/23/20 18:58 Resp 20 07/23/20 18:58 BP 145/76 H 07/23/20 18:58 Pulse Ox 98 07/23/20 18:58 Body Mass Index 73.7 Appearance: Alert. Oriented X3. No acute distress. Eyes: Pupils equal, round and reactive to light. ENT: Pharynx normal. Neck: Normal inspection. Neck supple. No lymph nodes noted. No crepitus CVS: Normal heart rate and rhythm. Pulses normal. Normal S1 and S2 Respiratory: No respiratory distress. Breath sounds normal. No Wheezing. No rales Abdomen: Soft and nontender. No rigidity. No distention. good BS x4 Skin: Skin warm and dry. Normal skin color. Normal skin turgor. Extremities: No lower extremity edema. Neurovascular intact to all extremities. No Lacerations. No Rash Neuro: Oriented X 3. No motor deficit. No sensory deficit. Moving all extermities. No slurred speech MDM - Chest Pain MDM Narrative Medical decision making narrative: Well-appearing no acute distress. Lungs are clear, chest x-ray showed no focal infiltrate. Patient's 1st set of troponin is negative. Will get a D-dimer to rule out the possibility of PE. History not consistent with PE. A 2nd set of troponin will be ordered. Pain is atypical for ACS. Patient's EKG is normal. Given his age 1 cardiac risk factor heart score is less than 3 Patient's D-dimer is negative. In the setting of low wrist unlikely to have PE. Two sets of cardiac enzymes negative patient well-appearing will discharge home Medical Records Data Attestation: I reviewed the patient's medical records. Lab Data Attestation: I reviewed the patient's lab results. Result diagrams: 07/23/20 16:44 07/23/20 16:44 Labs: Lab Results 07/23/20 07/23/20 07/23/20 Range/Units 16:44 16:44 16:44 WBC 7.1 (4.8-10.8) X10*3/uL RBC 4.94 (4.60-5.80) X10*6/uL Hgb 14.9 (14.0-18.0) g/dl Hct 45.6 (42-52) % MCV 92.3 (80-98) fL MCH 30.2 (27.0-33.0) pg MCHC 32.7 (31.0-36.0) g/dl RDW 13.0 (11.0-16.0) % Plt Count 240 (160-400) X10*3/uL MPV 10.0 (9.4-12.4) fL Immature Gran % (Auto) 2.1 H (0.0-0.4) % Neut % (Auto) 54.1 (45-73) % Lymph % (Auto) 31.4 (20-40) % [place] % (Auto) 9.6 (2-11) % Eos % (Auto) 2.1 (0-4) % Baso % (Auto) 0.7 (0-2) % Lymph # (Auto) 2.2 (1.2-4.9) X10*3/uL [place] # (Auto) 0.7 (0.1-1.2) X10*3/uL Eos # (Auto) 0.2 (0.0-0.4) X10*3/uL Baso # (Auto) 0.1 (0.0-0.2) X10*3/uL Abs Immat Gran (auto) 0.15 H (0.00-0.03) X10*3/uL Absolute Neuts (auto) 3.9 (2.0-8.3) X10*3/uL Absolute Nucleated RBC 0.000 (0.0-0.012) X10*3/uL Nucleated RBC % (auto) 0.0 (0.0-0.2) /100WBC D-Dimer NG/ML Hold Blue Top SEE NOTE Sodium 139 (135-145) mmol/L Potassium 4.7 (3.3-5.1) mmol/L Chloride 102 (96-108) mmol/L Carbon Dioxide 23 (22-29) mmol/L Anion Gap 19 (12-20) BUN 19 H (9-16) mg/dL Creatinine 0.88 (0.5-1.4) mg/dL Estim Creat Clear Calc 187.3 Estimated GFR > 60 Random Glucose 88 (60-115) mg/dL Calcium 9.4 (8.4-10.2) mg/dL Troponin I High Sens (<3.5-35.0) ng/L 07/23/20 07/23/20 07/23/20 Range/Units 16:44 19:57 19:57 WBC (4.8-10.8) X10*3/uL RBC (4.60-5.80) X10*6/uL Hgb (14.0-18.0) g/dl Hct (42-52) % MCV (80-98) fL MCH (27.0-33.0) pg MCHC (31.0-36.0) g/dl RDW (11.0-16.0) % Plt Count (160-400) X10*3/uL MPV (9.4-12.4) fL Immature Gran % (Auto) (0.0-0.4) % Neut % (Auto) (45-73) % Lymph % (Auto) (20-40) % [place] % (Auto) (2-11) % Eos % (Auto) (0-4) % Baso % (Auto) (0-2) % Lymph # (Auto) (1.2-4.9) X10*3/uL [place] # (Auto) (0.1-1.2) X10*3/uL Eos # (Auto) (0.0-0.4) X10*3/uL Baso # (Auto) (0.0-0.2) X10*3/uL Abs Immat Gran (auto) (0.00-0.03) X10*3/uL Absolute Neuts (auto) (2.0-8.3) X10*3/uL Absolute Nucleated RBC (0.0-0.012) X10*3/uL Nucleated RBC % (auto) (0.0-0.2) /100WBC D-Dimer < 200 NG/ML Hold Blue Top Sodium (135-145) mmol/L Potassium (3.3-5.1) mmol/L Chloride (96-108) mmol/L Carbon Dioxide (22-29) mmol/L Anion Gap (12-20) BUN (9-16) mg/dL Creatinine (0.5-1.4) mg/dL Estim Creat Clear Calc Estimated GFR Random Glucose (60-115) mg/dL Calcium (8.4-10.2) mg/dL Troponin I High Sens < 3.5 < 3.5 (<3.5-35.0) ng/L Discharge Plan Discharge Clinical Impression: Chest pain Patient Disposition: Home, Self-Care Instructions: Chest Pain (ED) Prescriptions: No Action lisinopril 30 mg tablet 30 mg PO DAILY 90 Days Qty: 90 RF: 1 metoprolol succinate 25 mg tablet extended release 24 hr 25 mg PO DAILY 90 Days Qty: 90 RF: 3 Referrals: Hailee Obrien MD [Primary Care Provider] - 2 days Print Language: Kinyarwanda
[2020-07-23 20:20] LABS: D Dimer < 200 NG/ML
[2020-07-23 20:38] LABS: Troponin-I High Sensitivity < 3.5 ng/L (<3.5-35.0)
--- NOTE | 2020-07-24 | ECG_ITS ---
Test Reason : CHEST PAIN Blood Pressure : / mmHG Vent. Rate : 082 BPM Atrial Rate : 082 BPM P-R Int : 142 ms QRS Dur : 096 ms QT Int : 374 ms P-R-T Axes : 041 -37 011 degrees QTc Int : 436 ms Normal sinus rhythm Left axis deviation Voltage criteria for left ventricular hypertrophy Abnormal ECG When compared with ECG of 19-JUL-2020 19:05, No significant change was found Referred By: Kay Delgado Electronically Signed By:Christiano Saha
== END 2020-07-23 21:27 | disposition home or self-care (01) ==
PROVIDERS: Emergency Medicine; Emergency Provider Emergency Medicine Emergency Medical Services; PCP Internal Medicine
DX: R07.9 Chest pain, unspecified (principal); F17.210 Nicotine dependence, cigarettes, uncomplicated; Z71.6 Tobacco abuse counseling; Z79.899 Other long term (current) drug therapy
CPT/HCPCS: 36415; 71045; 80048; 84484; 85025; 85379; 93005; 99283; 99284; 99285

== ENCOUNTER → 2020-08-20 15:30 | Outpatient (BNVA) | payer OTHER, SELFPAY | PROVIDERS: PCP Internal Medicine; Visit Provider Internal Medicine Cardiovascular Disease | DX: R07.89 Other chest pain (principal); I10 Essential (primary) hypertension; R00.2 Palpitations | CPT/HCPCS: 93005; 99202 ==

== ENCOUNTER → 2020-08-29 08:50 | Outpatient (REF) | payer OTHER, SELFPAY ==
--- NOTE | 2020-08-29 11:30 | ECG_ITS ---
Hook-up date: 2020-08-29 09:01:00 Duration: 47:59:00 Test Indications: PALPITATIONS Medications: [id number] QRS complexes 1 Ventricular ectopics which represent <1 % of total QRS comp. 18 Supraventricular ectopics which represent <1 % of total QRS comp. * Paced QRS complexs which represent % of total QRS comp. VENTRICULAR ECTOPY 1 Isolated 0 Bigeminal Cycles 0 Couplets 0 Runs 0 Beats in Runs * Beats LONGEST at * BPM at :: -- * Beats FASTEST at * BPM at :: -- SUPRAVENTRICULAR ECTOPY 16 Isolated 1 Couplets 0 Runs 0 Beats in Runs * Beats LONGEST at * BPM at :: -- * Beats FASTEST at * BPM at :: -- HEART RATES 53 MIN at 02:34:36 2020-08-30 80 AVG 122 MAX at 14:57:14 2020-08-30 LONGEST RR 1.2320 secs at 02:17:38 2020-08-30 S-T LEVELS Channel 1 - 128 mm at 09:01:00 2020-08-29 - 128 mm at 09:01:00 2020-08-29 Channel 2 - 128 mm at 09:01:00 2020-08-29 - 128 mm at 09:01:00 2020-08-29 Channel 3 - 128 mm at 02:82:01 -- - 128 mm at 02:82:01 Basic rhythm Normal sinus rhythm No long pause or profound bradycardia Rare Premature atrial complexes No diary submitted Referred By: Christiano Saha Overread By: TOMMY ARENAS MD
== END ==
LOC: HO.CARD 08:50
PROVIDERS: PCP Internal Medicine; Referring Provider Internal Medicine; Visit Provider Internal Medicine Cardiovascular Disease
DX: R00.2 Palpitations (principal)
CPT/HCPCS: 93226

== ENCOUNTER → 2020-09-02 10:52 | Outpatient (REF) | payer OTHER, SELFPAY ==
--- NOTE | 2020-09-02 10:59 | CA_ITS ---
Acquisition Time: 2020-09-02 10:57:49 Total Exercise Time: 00:10:06 Test Indications: CP, PALPITATIONS Medications: SEE CHART Protocol: CATARINA Max HR: 162 BPM 94% of Pred: 172 BPM Max BP: 140/080 mmHG Max Work Load: 12.0 METS Exercise stress ECHO total of 10 min 6 sec, METS 12.00, TAPHR up to 94%. Pt tolerated well, denies any anginal sx. EKG with occ. PAC's, no ischemic changes seen during exercise or in recovery. ECHO images taken at rest and immediately after peak exercise HR achieved. Definity contrast used. Normotensive response to exercise. Test reviewed with Dr. Esposito. Exercise echocardiogram was reviewed. At rest, there is normal LVEF and wall motion. With peak exercise, there is appropriate augmentation of wall thickening and contractility. There is normal decrease in end-systolic volume. Overall, this is a normal study. Referred By: Christiano Saha Overread By: LUCIE ESPOSITO
== END ==
LOC: HO.CARD 10:52
PROVIDERS: PCP Internal Medicine; Visit Provider Internal Medicine Cardiovascular Disease
DX: R07.89 Other chest pain (principal); R00.2 Palpitations; I10 Essential (primary) hypertension
CPT/HCPCS: 93350; Q9957

== ENCOUNTER 2020-10-02 16:00 | Outpatient (RCR) | payer OTHER, SELFPAY ==
--- NOTE | 2020-08-08 08:59 | MHC.PT.EP ---
[facility] [place] Office [place] Office [place] Office [address] Bradley Kent [address] [phone] F: [phone] F: [phone] F: [phone] F: [phone] Physical Therapy Plan of Care Date of Evaluation: 08/08/20 Date of Surgery: N/A Diagnosis: lesion of sciatic nerve, unspecified side Assessment: pt presents w/ signs and symptoms consistent w/ piriformis syndrome. pt presents to physical therapy with pain, decreased range of motion, decreased strength, impaired functional mobility, impaired postural awareness, and gait deviations. pt is a good candidate for skilled PT due to age, potential remediation of impairments, typical disease/condition progression and prognosis, comorbidities, and motivation. pt would benefit from tailored strengthening and stretching exercise program, functional training, gait training, postural re-training, neuromuscular re-education, modalities as needed for pain, equipment safety demonstration. Frequency and Duration: The patient will be seen 2x/wk for 4 wks Short Term Goals: pt will be I w/ HEP to promote self-management of condition. pt will demo proper sitting posture w/ lumbar roll to facilitate neutral spine as assessed via teachback and demo. Long-Term Goals: pt will report a statistically significant improvement in self-reported outcome measure, LEFI, to promote return to PLOF. pt will report <1/10 low back and radicular pain w/ forward bending to seed cone picker objects from ground level to facilitate return to PLOF. Treatment Plan: Modalities to reduce pain, spasms and effusion. Manual therapy to restore motion and function. Therapeutic exercise to improve strength and flexibility. Neuromuscular re-education for posture and balance. Therapeutic activities to return to functional activities of daily living. Electronically signed by: Arielle Faye PT, DPT Please sign and return to therapist. Thank you for your referral.
--- NOTE | 2020-10-03 09:33 | MHC.PT.DC ---
[facility] [place] Office [place] Office [place] Office [address] Bradley [place] [address] [phone] F: [phone] F: [phone] F: [phone] F: [phone] Physical Therapy Discharge Report Diagnosis: lesion of sciatic nerve, unspecified side Date of Surgery: N/A Date of Evaluation: 08/08/20 Date of Discharge: 10/03/20 Treatments to Date: 12 Cancellations to Date: 1 No Shows to Date: 0 Discharge Status: Improved Function Independent with HEP Discharge Summary: The patient overall reports he feels much, much better. He is independent with his home exercise program including bilateral lower extremity stretching and a comprehensive core stability program. He was instructed on return to gym exercises while promoting neutral spine. He is discharged from this physical therapy plan of care. Electronically signed by: Arielle Faye PT, DPT Please sign and return to therapist. Thank you for your referral.
== END 2020-10-03 09:33 | disposition other institution (70) ==
LOC: HO.PT 16:00
PROVIDERS: PCP Internal Medicine; Visit Provider Internal Medicine
DX: G57.00 Lesion of sciatic nerve, unspecified lower limb (principal)
CPT/HCPCS: 97035; 97110; 97112; 97140; 97161; 97530

== ENCOUNTER → 2020-10-13 15:02 | Outpatient (REF) | payer OTHER, SELFPAY ==
--- NOTE | 2020-10-13 15:07 | CA_ITS ---
Transthoracic Echocardiogram Patient (Last, First, Middle): Cal Cox, Gender: Male Date of : 1970 Age: 50 Procedure Date: 10/13/2020 Procedure Type: Transthoracic Echocardiogram Location: OP Height: 172.72 cm Weight: 99.79 kg BSA: 2.13 m2 Heart Rate: bpm BP: 125 / 80 mmHg Bilingual Medical Receptionist: Referring MD: Christiano Saha MD Symptoms: I10 - Essential (primary) hypertension Study Quality: Fair ECG Rhythm: Sinus Conclusions: - The left ventricular systolic function is normal. The visually estimated ejection fraction is between 60-65%. - Moderately increased right ventricular cavity size. - Small echodensity noted on aortic valve; appears to be on the non-coronary cusp; cannot exclude fibroelastoma. Findings Left Ventricle Normal left ventricular cavity size. There is normal left ventricular wall thickness. The left ventricular systolic function is normal. The visually estimated ejection fraction is between 60-65%. There is no evidence of regional wall motion abnormalities. Diastolic function is normal for age. Right Ventricle Moderately increased right ventricular cavity size. There is normal right ventricular systolic function. Atria The left atrium is mildly dilated. The right atrium is normal in size. Aortic Valve There is a normal trileaflet aortic valve. There is no aortic valve stenosis. There is no aortic valve regurgitation. Small echodensity noted on aortic valve; appears to be on the non-coronary cusp; cannot exclude fibroelastoma. Mitral Valve The mitral valve appears normal. There is trace mitral valve regurgitation. There is no mitral valve stenosis. Pulmonic Valve The pulmonic valve was not well visualized. Tricuspid Valve Normal tricuspid valve structure. There is trace tricuspid valve regurgitation. The pulmonary artery systolic pressure is normal. Great Vessels The aortic annulus, sinuses of valsalva, and asc aorta are normal in size. Venous The inferior vena cava is normal in size and collapses greater than 50% with inspiration. Pericardium/Pleural There is no evidence of pericardial effusion. Prior Study Comparison No prior study available for comparison. Recommendations, Care & Conclusions Consider a JACLYN if clinically appropriate. Measurements 2D Linear Measurements IVSd: 1.05 0.6-0.9/0.6-1.0 cm LVIDd: 5.04 3.9-5.3/4.2-5.9 cm LVIDd Index: 2.37 2.4-3.2/2.2-3.1 cm/m2 LVIDs: 3.05 2.0-3.6 cm LVPWd: 1.08 0.7-1.1 cm Ao Root: 3.30 2.1-3.5 cm LA Diam: 4.10 2.7-3.8/3.0-4.0 cm LAIDs Index: 1.92 1.5-2.3 cm/m2 LV Mass: 250.20 67-162/88-224 g LV Mass Index: 117.47 43-95/49-115 g/m2 LVOT Diam: 2.40 3.0+(-)1.3 cm 2D Systolic Function EF 4C: 57.50 >55% EF 2C: 55.20 >55% EF BiP: 57.00 >55% Mitral Valve MV Pk E: 0.88 MV PK A: 0.72 MV Decel Time: 199.00 E/A: 1.20 E'Lateral: 16.50 E'Medial: 10.30 E/E' Med: 8.60 E/E' Lat: 5.40 PHT: 58.00 MVA PHT: 3.79 Decel [place]: 4.43 Aortic Valve AoV Pk Emanuel: 1.55 AoV Mn Emanuel: 0.91 AoV VTI: 0.32 AoV Pk Grad: 10.00 Aov Mn Grad: 4.00 TERRANCE Cont.VTI: 2.49 LVOT LVOT Pk Emanuel: 0.81 LVOT Mn Emanuel: 0.55 LVOT VTI: 0.17 LVOT Pk Grad: 3.00 LVOT Mn Grad: 1.00 LVOT Diam: 2.40 LVOT Area: 4.52 Diastolic Function MV Pk E: 0.88 MV Pk A: 0.72 E/A: 1.20 E'Medial: 10.30 E/E' Med: 8.60 E' Laterial: 16.50 E/E' Lat: 5.40 Tricuspid Valve TR Pk Emanuel: 2.46 TR Pk Grad: 24.00 RA Press: 3.00 RVSP: 27.00 Great Vessels Aorta Ao Root-2D: 3.30 2.0-3.7 cm Ao Asc: 2.90 2.1-3.4 cm Pulmonary Valve PV Pk Emanuel: 1.41 Peak PV Grad: 8.00 Updated in Other Vendor System with Status of Final Freddy Esposito MD electronically signed on 10/14/2020 4:21:51 PM with status of Final
== END ==
LOC: HO.CARD 15:02
PROVIDERS: Visit Provider Internal Medicine Cardiovascular Disease
DX: R07.89 Other chest pain (principal); I10 Essential (primary) hypertension; R00.2 Palpitations
CPT/HCPCS: 93306

== ENCOUNTER → 2020-10-15 14:01 | Outpatient (BNVA) | payer OTHER, SELFPAY | PROVIDERS: PCP Internal Medicine; Referring Provider Internal Medicine; Visit Provider Internal Medicine Cardiovascular Disease | DX: I51.7 Cardiomegaly (principal); R00.2 Palpitations; I48.0 Paroxysmal atrial fibrillation; F41.9 Anxiety disorder, unspecified; G57.00 Lesion of sciatic nerve, unspecified lower limb; Z87.891 Personal history of nicotine dependence | CPT/HCPCS: 99212 ==

== ENCOUNTER 2020-12-03 15:48 | Outpatient (REF) | payer OTHER, SELFPAY ==
[2020-12-03 17:30] LABS: Anion Gap 12 (12-20); Blood Urea Nitrogen 18 mg/dL (9-16); Calcium 9.9 mg/dL (8.4-10.2); Carbon Dioxide 29 mmol/L (22-29); Chloride 103 mmol/L (96-108); Estimated Glomerular Filt Rate > 60; Glucose Random 94 mg/dL (60-115); Potassium 4.2 mmol/L (3.3-5.1); Sodium 140 mmol/L (135-145)
== END 2020-12-03 15:49 | disposition home or self-care (01) ==
LOC: HO.LAB 15:48
PROVIDERS: PCP Internal Medicine; Visit Provider Internal Medicine Cardiovascular Disease
DX: I51.7 Cardiomegaly (principal)
CPT/HCPCS: 36415; 80048

== ENCOUNTER → 2021-01-07 14:45 | Outpatient (BNVA) | payer OTHER, SELFPAY | PROVIDERS: PCP Internal Medicine; Visit Provider Internal Medicine Cardiovascular Disease | DX: I51.7 Cardiomegaly (principal); I10 Essential (primary) hypertension | CPT/HCPCS: 99212 ==

== ENCOUNTER → 2021-04-13 15:52 | Outpatient (BNVA) | payer OTHER, SELFPAY | PROVIDERS: PCP Internal Medicine; Referring Provider Internal Medicine; Visit Provider Internal Medicine Cardiovascular Disease | DX: I10 Essential (primary) hypertension (principal) | CPT/HCPCS: 93005; 99212 ==

== ENCOUNTER 2021-07-18 08:26 | Outpatient (REF) | payer OTHER, SELFPAY ==
[2021-07-18 10:11] LABS: Alanine Aminotransferase 32 U/L (0-40); Albumin Level 4.2 g/dL (3.5-5.0); Alkaline Phosphatase 43 U/L (39-117); Anion Gap 11 (12-20); Aspartate Amino Transferase 21 U/L (5-37); Bilirubin Total 0.6 mg/dL (0.0-1.0); Blood Urea Nitrogen 19 mg/dL (9-16); Calcium 9.1 mg/dL (8.4-10.2); Carbon Dioxide 27 mmol/L (22-29); Chloride 107 mmol/L (96-108); Cholesterol 223 mg/dL; Estimated Glomerular Filt Rate > 60; Glucose Fasting 112 mg/dL (60-99); HDL Cholesterol 50 mg/dL; LDL Cholesterol Calculated 156 mg/dl; Potassium 4.4 mmol/L (3.3-5.1); Sodium 141 mmol/L (135-145); Total Protein 7.2 g/dL (6.5-8.0); Triglycerides 87 mg/dL
== END 2021-07-18 08:27 | disposition home or self-care (01) ==
LOC: HO.LAB 08:26
PROVIDERS: PCP Internal Medicine; Visit Provider Internal Medicine
DX: E78.5 Hyperlipidemia, unspecified (principal); I48.0 Paroxysmal atrial fibrillation
CPT/HCPCS: 36415; 80053; 80061

== ENCOUNTER 2021-12-01 06:01 | Outpatient (REF) | payer OTHER, SELFPAY ==
[2021-12-01 07:44] LABS: Alanine Aminotransferase 19 U/L (0-40); Albumin Level 4.4 g/dL (3.5-5.0); Alkaline Phosphatase 49 U/L (39-117); Anion Gap 14 (12-20); Aspartate Amino Transferase 16 U/L (5-37); Bilirubin Total 0.6 mg/dL (0.0-1.0); Blood Urea Nitrogen 14 mg/dL (9-16); Calcium 9.3 mg/dL (8.4-10.2); Carbon Dioxide 30 mmol/L (22-29); Chloride 101 mmol/L (96-108); Cholesterol 226 mg/dL; Estimated Glomerular Filt Rate > 60; Glucose Fasting 111 mg/dL (60-99); HDL Cholesterol 50 mg/dL; LDL Cholesterol Calculated 162 mg/dl; Potassium 4.6 mmol/L (3.3-5.1); Sodium 140 mmol/L (135-145); Total Protein 7.4 g/dL (6.5-8.0); Triglycerides 72 mg/dL
== END 2021-12-01 06:02 | disposition home or self-care (01) ==
LOC: HO.LAB 06:01
PROVIDERS: PCP Internal Medicine; Visit Provider Internal Medicine
DX: I10 Essential (primary) hypertension (principal); E78.5 Hyperlipidemia, unspecified
CPT/HCPCS: 36415; 80053; 80061

== ENCOUNTER → 2021-12-17 13:23 | Outpatient (BNVA) | payer OTHER, SELFPAY | PROVIDERS: PCP Internal Medicine; Referring Provider Internal Medicine; Visit Provider Nurse Practitioner Family | DX: I10 Essential (primary) hypertension (principal); R07.89 Other chest pain; I48.0 Paroxysmal atrial fibrillation; E78.5 Hyperlipidemia, unspecified; I51.7 Cardiomegaly; Z79.82 Long term (current) use of aspirin; Z79.899 Other long term (current) drug therapy | CPT/HCPCS: 99212 ==

== ENCOUNTER 2022-06-07 06:04 | Outpatient (REF) | payer OTHER, SELFPAY ==
[2022-06-07 08:30] LABS: Alanine Aminotransferase 23 U/L (0-40); Albumin Level 4.2 g/dL (3.5-5.0); Alkaline Phosphatase 48 U/L (39-117); Anion Gap 13 (12-20); Aspartate Amino Transferase 17 U/L (5-37); Bilirubin Total 0.6 mg/dL (0.0-1.0); Blood Urea Nitrogen 22 mg/dL (9-16); Calcium 9.4 mg/dL (8.4-10.2); Carbon Dioxide 29 mmol/L (22-29); Chloride 105 mmol/L (96-108); Cholesterol 218 mg/dL; Estimated Glomerular Filt Rate > 60; Glucose Fasting 113 mg/dL (60-99); HDL Cholesterol 48 mg/dL; LDL Cholesterol Calculated 149 mg/dl; Potassium 4.8 mmol/L (3.3-5.1); Sodium 142 mmol/L (135-145); Total Protein 6.9 g/dL (6.5-8.0); Triglycerides 106 mg/dL
== END 2022-06-07 06:05 | disposition home or self-care (01) ==
LOC: HO.LAB 06:04
PROVIDERS: PCP Internal Medicine; Visit Provider Internal Medicine
DX: E78.00 Pure hypercholesterolemia, unspecified (principal); E78.5 Hyperlipidemia, unspecified
CPT/HCPCS: 36415; 80053; 80061

== ENCOUNTER → 2022-10-04 15:08 | Outpatient (BNVA) | payer OTHER, SELFPAY | PROVIDERS: PCP Internal Medicine; Referring Provider Internal Medicine; Visit Provider Internal Medicine Cardiovascular Disease | DX: I10 Essential (primary) hypertension (principal) | CPT/HCPCS: 93005; 99212 ==

== ENCOUNTER 2022-10-06 06:17 | Outpatient (REF) | payer OTHER, SELFPAY ==
[2022-10-06 08:01] LABS: Alanine Aminotransferase 21 U/L (0-40); Albumin Level 4.4 g/dL (3.5-5.0); Alkaline Phosphatase 43 U/L (39-117); Anion Gap 13 (12-20); Aspartate Amino Transferase 19 U/L (5-37); Bilirubin Total 0.9 mg/dL (0.0-1.0); Blood Urea Nitrogen 18 mg/dL (9-16); Calcium 9.7 mg/dL (8.4-10.2); Carbon Dioxide 29 mmol/L (22-29); Chloride 105 mmol/L (96-108); Cholesterol 133 mg/dL; Estimated Glomerular Filt Rate > 60; Glucose Fasting 118 mg/dL (60-99); HDL Cholesterol 39 mg/dL; LDL Cholesterol Calculated 82 mg/dl; Sodium 143 mmol/L (135-145); Total Protein 7.6 g/dL (6.5-8.0); Triglycerides 64 mg/dL
== END 2022-10-06 06:18 | disposition home or self-care (01) ==
LOC: HO.LAB 06:17
PROVIDERS: PCP Internal Medicine; Visit Provider Internal Medicine
DX: E78.00 Pure hypercholesterolemia, unspecified (principal)
CPT/HCPCS: 36415; 80053; 80061

== ENCOUNTER 2023-02-07 06:31 | Outpatient (REF) | payer OTHER, SELFPAY ==
[2023-02-07 08:19] LABS: Cholesterol 179 mg/dL (<200); HDL Cholesterol 57 mg/dL (>40); LDL Cholesterol Calculated 111 mg/dL (<100); Triglycerides 58 mg/dL (<150)
== END 2023-02-07 06:32 | disposition home or self-care (01) ==
LOC: HO.LAB 06:31
PROVIDERS: Visit Provider Internal Medicine Cardiovascular Disease
DX: E78.5 Hyperlipidemia, unspecified (principal)
CPT/HCPCS: 36415; 80061

== ENCOUNTER 2023-02-07 15:15 | Outpatient (AMB) | payer OTHER, SELFPAY ==
--- NOTE | 2023-02-07 15:24 | MHC.PC.OV ---
Vital Signs 02/07/23 15:25 Height 5 ft 8 in Weight 217 lb BMI 33.0 BP 140/90 H Blood Pressure Location Lt brachial Position Sitting Pulse 72 Pulse Source Pulse Oximeter Pulse Oximetry (%) 98 Oxygen Delivery Method Room Air Intake Visit Reasons: bp Intake Note: Patient here for a follow up BP Trimming Cutter Required: No Accompanied by: Self / Same As Patient Allergies No Known Allergies Allergy (Verified 02/07/23 15:37) Medication List - Last Reconciled 02/07/23 by Hailee Dixon MD aspirin 81 mg PO DAILY 90 days carvedilol 12.5 mg PO BID losartan-hydrochlorothiazide 50-12.5 mg 1 tab PO DAILY 90 days rosuvastatin 10 mg PO DAILY Tobacco use date assessed: 06/08/22 Dental Screening Dental Screen Date: 02/07/23 Did you have a dental visit in the last 12 months?: Yes Did you have a dental problem in the last 6 months where you did not have access to dental care?: No Was dental information given to patient?: Patient has dentist HPI HPI Comments History of Present Illness Details This is a 53-year-old male with hypertension, paroxysmal atrial fibrillation, dyslipidemia and anxiety that comes today for follow-up on his conditions. Blood pressure borderline normal to elevated and will be recheck in 3 weeks by nurse navigator. Atrial fibrillation follow by cardiology and has been stable with metoprolol. Cholesterol well controlled with statins and has not reported any side effect. Anxiety comes on and off but does not require any medication as of now. PFS Medical History Dyslipidemia Impaired glucose tolerance Right ventricular dilation Anxiety Piriformis syndrome Paroxysmal atrial fibrillation Essential hypertension HTN (hypertension) Disc herniation Surgical History Saphenous vein occlusion, right Previous back surgery Family History Mother Hypertension Alzheimer disease Father Hypertension Hx of colon cancer, stage III Kidney calculus Social History Housing: House Alcohol intake: current Alcohol intake frequency: a few times a month Alcohol type: beer and hard liquor Patient Tobacco Use Status: Former Tobacco user Quit Date: 2001 Smoked: 7 e-Cigarette/Vaping Use: Never Used Second Hand Smoke Exposure: No service: No Current occupational status: employed Current occupational exposures/hazards: No Cognitive needs: No Hearing needs: No Vision needs: No Questionnaire Thrive Questionnaire Date Thrive assessed: 06/08/22 NATE-7 AMB Questionnaire NATE-7 Date NATE - 7 assessed: 06/08/22 Source: Developed by Drs. Alden Platt, Jada Owens, Zachary Parra and colleagues, with an educational andria from [employer]. Review of Systems Const All systems reviewed & are unremarkable except as noted in HPI and below Eyes Reports no additional complaints, Denies change in vision and Denies other visual disturbances Card Denies chest pain at rest, Denies chest pain with activity, Denies edema, Denies irregular heart rhythm, Denies claudication, Denies dyspnea, Denies dyspnea on exertion, Denies orthopnea, Denies paroxysmal nocturnal dyspnea and Denies slow heart rate Resp Denies cough, Denies dyspnea and Denies dyspnea on exertion GI Denies abdominal pain, Denies change in bowel habits, Denies excessive flatus, Denies nausea and Denies vomiting Denies urinary hesitancy, Denies urinary incontinence and Denies urinary urgency Musc Denies abnormal gait, Denies atrophy, Denies deformity and Denies limited range of motion Skin/Breast Denies bleeding lesions, Denies changing lesions and Denies rash Neuro Denies abnormal gait and Denies lack of coordination Physical exam (Primary Care) Vital Signs: Last Vital Signs Pulse 72 02/07/23 15:25 BP 140/90 H 02/07/23 15:25 Pulse Ox 98 02/07/23 15:25 Oxygen Delivery Method Room Air 02/07/23 15:25 BMI result Body Mass Index 33.0 Tobacco/Smoking Status: Tobacco use Status Tobacco use date assessed 06/08/22 02/07/23 15:28 Patient Tobacco Use Status Former Tobacco user 02/07/23 15:28 e-Cigarette/Vaping Use Never Used 02/07/23 15:28 Thrive Assessment: Date of Thrive Assessment Date Thrive assessed 06/08/22 02/07/23 15:28 Eyes General: appearance normal, both eyes and all related structures Eyelids: Yes eyelids normal Conjunctivae: conjunctivae normal Neck Neck: Yes normal visual inspection and Yes supple Resp Effort & Inspection: normal respiratory effort Auscultation: clear to auscultation bilaterally Cardio Jugular venous distension: no JVD Rate: regular rate Rhythm: regular rhythm Heart sounds: S1 normal heart sound present and S2 normal heart sound present Extrem General: Yes full ROM Assessment and Plan Assessment & Plan (1) HTN (hypertension): Code(s): I10 - Essential (primary) hypertension Plan: Continue losartan-hydrochlorothiazide. Blood pressure goal is equal or less than 130/80. Recheck blood pressure with nurse navigator in 3 weeks. (2) Dyslipidemia: Code(s): E78.5 - Hyperlipidemia, unspecified Plan: Continue statins. (3) Paroxysmal atrial fibrillation: Code(s): I48.0 - Paroxysmal atrial fibrillation Plan: Continue carvedilol. (4) Anxiety: Code(s): F41.9 - Anxiety disorder, unspecified Plan: Continue relaxation techniques. Orders: Orders Lipid Panel 5 Months E78.5 - Hyperlipidemia, unspecified Comprehensive [place]. Panel Fast 5 Months I10 - Essential (primary) hypertension Coding Level of Care Code Est Pt Level 4 (10021) Diagnoses HTN (hypertension) I10 Dyslipidemia E78.5 Paroxysmal atrial fibrillation I48.0 Anxiety F41.9 Time Spent (min) 23
[2023-02-07 15:25] VITALS: BP 140/90; PULSE 72; O2SAT 98; BMI 33.0
== END 2023-02-07 15:45 | disposition home or self-care (01) ==
PROVIDERS: PCP Internal Medicine; Visit Provider Internal Medicine
DX: I10 Essential (primary) hypertension (principal); E78.5 Hyperlipidemia, unspecified; I48.0 Paroxysmal atrial fibrillation; F41.9 Anxiety disorder, unspecified
CPT/HCPCS: 99214

== ENCOUNTER 2023-04-11 14:34 | Emergency (ER) | payer OTHER, SELFPAY ==
--- NOTE | ~2023-04-11 | XR_ITS ---
EXAMINATION: XR KNEE, LEFT CLINICAL INFORMATION: Knee pain COMPARISON: None available. TECHNIQUE: Four views of the left knee. FINDINGS: No fracture or joint effusion. Alignment is anatomic. Joint spaces are maintained. No abnormal soft tissue calcification. XR/XR knee LT 3V IMPRESSION: Normal left knee.
[2023-04-11 15:07] VITALS: BP 152/84; BP 154/95; PULSE 102; PULSE 106; RESP 20; TEMP 36.9; O2SAT 97; O2SAT 98; BMI 33.1
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
== END 2023-04-11 18:39 | disposition home or self-care (01) ==
PROVIDERS: Emergency Provider Internal Medicine
DX: S83.92XA Sprain of unspecified site of left knee, initial encounter (principal); V03.00XA Pedestrian on foot injured in collision with car, pick-up truck or van in nontraffic accident, initial encounter; Y93.9 Activity, unspecified; Y92.481 Parking lot as the place of occurrence of the external cause; Y99.9 Unspecified external cause status; Z79.899 Other long term (current) drug therapy; Z87.891 Personal history of nicotine dependence
CPT/HCPCS: 73562; 99281; 99283

== ENCOUNTER 2023-05-10 07:07 | Emergency (ER) | payer OTHER, SELFPAY ==
--- NOTE | ~2023-05-10 | XR_ITS ---
EXAMINATION: XR KNEE, LEFT CLINICAL INFORMATION: Pain/lump inner aspect of left renal COMPARISON: None available. TECHNIQUE: 2 views of the left knee. FINDINGS: The tricompartment joint space is maintained normal. No loose bodies or joint effusion seen. There are enthesophytes along the superior and inferior patella. The soft tissues are normal. XR/XR knee LT 2V IMPRESSION: Unremarkable left knee exam
[2023-05-10 07:11] VITALS: BP 147/66; PULSE 81; RESP 18; TEMP 36.5; O2SAT 96; BMI 34.0
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
[2023-05-10 07:56] VITALS: BP 156/89; PULSE 69; RESP 18; O2SAT 98
== END 2023-05-10 08:21 | disposition home or self-care (01) ==
PROVIDERS: Emergency Provider Emergency Medicine; PCP Internal Medicine
DX: S80.02XA Contusion of left knee, initial encounter (principal); V03.00XA Pedestrian on foot injured in collision with car, pick-up truck or van in nontraffic accident, initial encounter; Y93.89 Activity, other specified; Y92.410 Unspecified street and highway as the place of occurrence of the external cause; Y99.9 Unspecified external cause status
CPT/HCPCS: 73560; 99283; 99284

== ENCOUNTER 2023-05-20 15:39 | Outpatient (REF) | payer OTHER, SELFPAY ==
[2023-05-20 18:23] LABS: Influenza A PCR NEGATIVE (Negative); Influenza B PCR NEGATIVE (Negative); Resp Syncy Virus RNA Qual PCR NEGATIVE (Negative); SARS COV2 PCR INHOUSE POSITIVE (Negative)
== END 2023-05-20 15:40 | disposition home or self-care (01) ==
LOC: HO.LAB 15:39
PROVIDERS: PCP Internal Medicine; Visit Provider Internal Medicine
DX: R09.89 Other specified symptoms and signs involving the circulatory and respiratory systems (principal); Z11.52 Encounter for screening for COVID-19
CPT/HCPCS: 0241U

== ENCOUNTER 2023-06-01 15:20 | Outpatient (AMB) | payer OTHER, SELFPAY ==
--- NOTE | 2023-06-01 15:40 | A.OFFVIS_ITS ---
Intake Vital Signs 06/01/23 15:41 Height 5 ft 8 in Weight 221 lb 12.56 oz BMI 33.7 BP 160/70 H Blood Pressure Location Lt brachial Position Sitting Pulse 78 Pulse Source Pulse Oximeter Intake Visit Reasons: 6 month follow up Intake Note: pt its here for a 6 month f/up pt states that he its fine now but last week his bp was high due to him having covid. pt also states that he had stop the atorvastatin due to covid medication that he was taking. Feather Trimmer Required: Yes Feather Trimmer Name: mary/Samuel Accompanied by: Self / Same As Patient Allergies No Known Allergies Allergy (Verified 02/07/23 15:37) Medication List - Last Reconciled 06/01/23 by Christiano Saha MD aspirin 81 mg PO DAILY 90 days carvedilol 12.5 mg PO BID losartan-hydrochlorothiazide 50-12.5 mg 1 tab PO DAILY 90 days rosuvastatin 10 mg PO DAILY HPI HPI Comments History of Present Illness Details 53-year-old gentleman here for follow-up . He has background history of hypertension. He has some palpitation and tachycardia and was worried about atrial fibrillation. EKG previously has shown no evidence of AFib. Echocardiography which showed normal LV function for moderately dilated right ventricle. Also there was concern for fibroelastoma of the aortic valve. He underwent MRI of his heart which showed normal left ventricular right ventricular function and right ventricle was at upper limit of normal. No fibroelastoma seen. He was advised to start baby aspirin. He has been on carvedilol and losartan- hydrochlorothiazide combination for blood pressure control. 06/01/2023: He returns for follow-up. His blood pressure in the office is 160/70. He previously had elevated cholesterol and was advised to increase his rosuvastatin from 10-40 mg but he repeated his LDL cholesterol again 2 days after appointment and total cholesterol was 133, triglycerides 64 and LDL 82. It appears he continued rosuvastatin 10 mg after that. He also had repeat cholesterol in January 2023 with total cholesterol 179, LDL 111, triglycerides 58 and HDL 57. He had COVID-19 infection in last week of April 2023. He said he was given Paxlovid but he did not use any [id number] medications. He said he has been noticing that his blood pressure at home is high and blood pressure readings are 150s to 160s systolic. He had blood pressure 160/70 initially but repeat manual check was 142/72. He is denying any other symptoms currently. [facility] Medical History Dyslipidemia Impaired glucose tolerance Right ventricular dilation Anxiety Piriformis syndrome Paroxysmal atrial fibrillation Essential hypertension HTN (hypertension) Disc herniation Surgical History Saphenous vein occlusion, right Previous back surgery Family History Mother Hypertension Alzheimer disease Father Hypertension Hx of colon cancer, stage III Kidney calculus Social History Housing: House Alcohol intake: current Alcohol intake frequency: a few times a month Alcohol type: beer and hard liquor Patient Tobacco Use Status: Former Tobacco user Quit Date: 2001 Smoked: 7 e-Cigarette/Vaping Use: Never Used Second Hand Smoke Exposure: No service: No Current occupational status: employed Current occupational exposures/hazards: No Cognitive needs: No Hearing needs: No Vision needs: No Review of Systems Const Denies chills, Denies fatigue, Denies fever(s), Denies frequent falls, Denies weakness, Denies weight gain and Denies weight loss ENT Denies dizziness Card Denies chest pain, Denies leg edema, Denies lightheadedness, Denies palpitations, Denies dyspnea and Denies dyspnea on exertion Resp Denies cough, Denies dyspnea and Denies dyspnea on exertion GI Denies hematochezia Musc Denies abnormal gait, Denies muscle weakness, Denies numbness, Denies radiating pain into limb and Denies tingling Neuro Denies abnormal gait, Denies dizziness, Denies frequent falls, Denies numbness, Denies tingling and Denies weakness Endo Denies fatigue and Denies palpitations Physical Exam Vital Signs: Last Vital Signs Pulse 78 06/01/23 15:41 BP 160/70 H 06/01/23 15:41 BMI result Body Mass Index 33.7 GENERAL APPEARANCE: in no acute distress, pleasant. NECK: no carotid bruit, no jugular venous distention. SKIN: no suspicious lesions, warm and dry. HEART: no murmurs, regular rate and rhythm. LUNGS: clear to auscultation bilaterally. ABDOMEN: soft, nontender. EXTREMITIES: no edema. PERIPHERAL PULSES: equal. NEUROLOGIC: No gross deficits, AAO X 3 Assessment & Plan Assessment & Plan (1) HTN (hypertension): Code(s): I10 - Essential (primary) hypertension Plan Pleasant 53 year gentleman who is here for follow-up. He has background history of hypertension hyperlipidemia. He is on Crestor 10 mg daily. He recently had COVID-19 infection and was given Paxlovid. His blood pressure has been high at home and manual blood pressure with us is 142/70. I have advised him to increase the carvedilol to 25 mg twice a day. He has a lot of pills at home and he will take 2 of those in the morning and 2 at night daily runs out and then pick the new script to 25 mg twice a day. Follow-up with us in 4 months. Thank you for allowing me to participate in the care of your patient. Please feel free to contact me if you have any questions. Medications: New carvedilol must administer with a meal/food 25 mg PO BID 100 tabs 3RF I10 - Essential (primary) hypertension Discontinued carvedilol Discontinued Reason: None 12.5 mg PO BID 180 tabs 1RF Coding Level of Care Code Est Pt Level 4 (86545) Diagnoses HTN (hypertension) I10
[2023-06-01 15:41] VITALS: BP 160/70; PULSE 78; BMI 33.7
== END 2023-06-01 16:09 | disposition home or self-care (01) ==
PROVIDERS: PCP Internal Medicine; Referring Provider Internal Medicine; Visit Provider Internal Medicine Cardiovascular Disease
DX: I10 Essential (primary) hypertension (principal)
CPT/HCPCS: 99214

== ENCOUNTER → 2023-06-01 15:20 | Outpatient (BNVA) | payer OTHER, SELFPAY | PROVIDERS: PCP Internal Medicine; Visit Provider Internal Medicine Cardiovascular Disease | DX: I10 Essential (primary) hypertension (principal) | CPT/HCPCS: 99212 ==

== ENCOUNTER 2023-07-12 08:58 | Outpatient (REF) | payer OTHER, SELFPAY ==
[2023-07-12 10:18] LABS: Influenza A PCR NEGATIVE (Negative); Influenza B PCR NEGATIVE (Negative); Resp Syncy Virus RNA Qual PCR NEGATIVE (Negative); SARS COV2 PCR INHOUSE NEGATIVE (Negative)
== END 2023-07-12 08:59 | disposition home or self-care (01) ==
LOC: HO.LAB 08:58
PROVIDERS: PCP Internal Medicine; Visit Provider Internal Medicine
DX: R09.89 Other specified symptoms and signs involving the circulatory and respiratory systems (principal)
CPT/HCPCS: 0241U

== ENCOUNTER 2023-10-05 06:36 | Outpatient (REF) | payer OTHER, SELFPAY ==
[2023-10-05 08:32] LABS: Alanine Aminotransferase 33 U/L (0-40); Albumin Level 4.3 g/dL (3.5-5.0); Alkaline Phosphatase 42 U/L (39-117); Anion Gap 12 (12-20); Aspartate Amino Transferase 23 U/L (5-37); Bilirubin Total 0.7 mg/dL (0.0-1.0); Blood Urea Nitrogen 19 mg/dL (9-16); Calcium 9.7 mg/dL (8.4-10.2); Carbon Dioxide 29 mmol/L (22-29); Chloride 102 mmol/L (96-108); Cholesterol 166 mg/dL (<200); Estimated Glomerular Filt Rate > 60; Glucose Fasting 106 mg/dL (60-99); HDL Cholesterol 52 mg/dL (>40); LDL Cholesterol Calculated 98 mg/dL (<100); Potassium 3.9 mmol/L (3.3-5.1); Sodium 139 mmol/L (135-145); Total Protein 7.5 g/dL (6.5-8.0); Triglycerides 83 mg/dL (<150)
== END 2023-10-05 06:37 | disposition home or self-care (01) ==
LOC: HO.LAB 06:36
PROVIDERS: PCP Internal Medicine; Visit Provider Internal Medicine
DX: I10 Essential (primary) hypertension (principal); E78.5 Hyperlipidemia, unspecified; R06.02 Shortness of breath
CPT/HCPCS: 36415; 80053; 80061; 93005; 99212

== ENCOUNTER 2023-10-05 15:25 | Outpatient (AMB) | payer OTHER, SELFPAY ==
[2023-10-05 15:39] VITALS: BP 140/72; PULSE 70; BMI 34.5
--- NOTE | 2023-10-05 15:39 | MHC.OFFVIS ---
Vital Signs 10/05/23 15:39 Height 5 ft 8 in Weight 226 lb 10.163 oz BMI 34.5 BP 140/72 H Blood Pressure Location Lt brachial Position Sitting Pulse 70 Intake Visit Reasons: 4 m follow up Joint Cutter Machine Required: Yes Joint Cutter Machine Name: [id number]/[email or web address] Accompanied by: Self / Same As Patient Allergies No Known Allergies Allergy (Verified 02/07/23 15:37) Medication List - Last Reconciled 10/05/23 by Christiano Saha MD aspirin 81 mg PO DAILY 90 days carvedilol 25 mg PO BID losartan-hydrochlorothiazide 50-12.5 mg 1 tab PO DAILY 90 days rosuvastatin 10 mg PO DAILY HPI Comments Details: 53-year-old gentleman here for follow-up. He has background history of hypertension. He has some palpitation and tachycardia and was worried about atrial fibrillation. EKG previously has shown no evidence of AFib. Echocardiography which showed normal LV function for moderately dilated right ventricle. Also there was concern for fibroelastoma of the aortic valve. He underwent MRI of his heart which showed normal left ventricular right ventricular function and right ventricle was at upper limit of normal. No fibroelastoma seen. He was advised to start baby aspirin. He has been on carvedilol and losartan-hydrochlorothiazide combination for blood pressure control. 06/01/2023: He returns for follow-up. His blood pressure in the office is 160/70. He previously had elevated cholesterol and was advised to increase his rosuvastatin from 10-40 mg but he repeated his LDL cholesterol again 2 days after appointment and total cholesterol was 133, triglycerides 64 and LDL 82. It appears he continued rosuvastatin 10 mg after that. He also had repeat cholesterol in January 2023 with total cholesterol 179, LDL 111, triglycerides 58 and HDL 57. He had COVID-19 infection in last week of April 2023. He said he was given Paxlovid but he did not use any lfpr-bhf-cybpxry medications. He said he has been noticing that his blood pressure at home is high and blood pressure readings are 150s to 160s systolic. He had blood pressure 160/70 initially but repeat manual check was 142/72. He is denying any other symptoms currently. 10/05/23: He is here for f/u. BP elevated. He has inferior T wave inversions. Occasionally feels dyspnea. No CP. PFSH Medical History Dyslipidemia Impaired glucose tolerance Right ventricular dilation Anxiety Piriformis syndrome Paroxysmal atrial fibrillation Essential hypertension HTN (hypertension) Disc herniation Surgical History Saphenous vein occlusion, right Previous back surgery Family History Mother Hypertension Alzheimer disease Father Hypertension Hx of colon cancer, stage III Kidney calculus Social History Housing: House Alcohol intake: current Alcohol intake frequency: a few times a month Alcohol type: beer and hard liquor Patient Tobacco Use Status: Former Tobacco user Years Smoked: 7 e-Cigarette/Vaping Use: Never Used Second Hand Smoke Exposure: No service: No Current occupational status: employed Current occupational exposures/hazards: No Cognitive needs: No Hearing needs: No Vision needs: No Review of Systems Const Denies chills, Denies fatigue, Denies fever(s), Denies frequent falls, Denies weakness, Denies weight gain and Denies weight loss ENT Denies dizziness Card Denies chest pain, Denies leg edema, Denies lightheadedness, Denies palpitations, Denies dyspnea and Denies dyspnea on exertion Resp Denies cough, Denies dyspnea and Denies dyspnea on exertion GI Denies hematochezia Musc Denies abnormal gait, Denies muscle weakness, Denies numbness, Denies radiating pain into limb and Denies tingling Neuro Denies abnormal gait, Denies dizziness, Denies frequent falls, Denies numbness, Denies tingling and Denies weakness Endo Denies fatigue and Denies palpitations Physical Exam Vital Signs: Last Vital Signs Pulse 70 10/05/23 15:39 BP 140/72 H 10/05/23 15:39 BMI result Body Mass Index 34.5 GENERAL APPEARANCE: in no acute distress, pleasant. NECK: no carotid bruit, no jugular venous distention. SKIN: no suspicious lesions, warm and dry. HEART: no murmurs, regular rate and rhythm. LUNGS: clear to auscultation bilaterally. ABDOMEN: soft, nontender. EXTREMITIES: no edema. PERIPHERAL PULSES: equal. NEUROLOGIC: No gross deficits, AAO X 3 Office Procedures EKG Details: NSR 70/min, Left axis, Inferior T wave inversions (new), LVH, QTc 412, 78330-[id number], Complete Assessment & Plan Assessment & Plan (1) HTN (hypertension): Code(s): I10 - Essential (primary) hypertension Category: Medical Plan Pleasant 53 year gentleman who is here for follow-up. He has background history of hypertension hyperlipidemia. He is on Crestor 10 mg daily. BP elevated- advised him to take losartan- HCTZ BID. For TWI, arranging stress echo. f/u few months. Thank you for allowing me to participate in the care of your patient. Please feel free to contact me if you have any questions. Orders: Orders CA echo stress exercise w con Today R06.02 - Shortness of breath Medications: Changed From losartan-hydrochlorothiazide 50-12.5 mg 1 tab PO DAILY 90 days 90 tabs 3RF R06.02 - Shortness of breath To losartan-hydrochlorothiazide 50-12.5 mg 1 tab PO BID 90 days 180 tabs 4RF R06.02 - Shortness of breath Coding Level of Care Code Est Pt Level 4 (90266) Diagnoses HTN (hypertension) I10 CPT Codes EKG - CPT: 98612-[id number], Complete ([id number])
== END 2023-10-05 16:03 | disposition home or self-care (01) ==
PROVIDERS: PCP Internal Medicine; Visit Provider Internal Medicine Cardiovascular Disease
DX: I10 Essential (primary) hypertension (principal)
CPT/HCPCS: 93010; 99214

== ENCOUNTER → 2023-11-17 10:54 | Outpatient (REF) | payer OTHER, SELFPAY ==
--- NOTE | 2023-11-17 10:56 | CA_ITS ---
Acquisition Time: 2023-11-17 10:57:29 Total Exercise Time: 00:12:16 Test Indications: CP, HTN Medications: SEE H Protocol: CATARINA Max HR: 166 BPM 98% of Pred: 169 BPM Max BP: 162/078 mmHG Max Work Load: 13.7 METS Exercise stress test exercise 12 min 16 sec of Catarina protocol achieving 97% MPHR, without anginal symptoms, with isolated PACs and PVCs, with normotensive response to exercise, without EKG chnages, Echo images obtained by tech at rest and immediately post peak exercise. Definity contrast used. Test reviewed with Dr. Esposito, Referred By: Christiano Saha Overread By: Claritza Iyer
== END ==
LOC: HO.CARD 10:54
PROVIDERS: PCP Internal Medicine; Visit Provider Internal Medicine Cardiovascular Disease
DX: R06.02 Shortness of breath (principal)
CPT/HCPCS: 93350; Q9957

== ENCOUNTER → 2023-11-17 10:56 | Outpatient (BNV) | payer OTHER, SELFPAY | PROVIDERS: PCP Internal Medicine; Visit Provider Nurse Practitioner | DX: I10 Essential (primary) hypertension (principal); R07.9 Chest pain, unspecified; I49.1 Atrial premature depolarization; I49.3 Ventricular premature depolarization | CPT/HCPCS: 93016; 93018; 93350; 93352 ==

== ENCOUNTER 2023-12-05 15:13 | Outpatient (AMB) | payer OTHER, SELFPAY ==
[2023-12-05 15:27] VITALS: BP 136/80; BMI 34.2
--- NOTE | 2023-12-05 15:27 | MHC.PC.OV ---
Vital Signs 12/05/23 15:27 Height 5 ft 8 in Weight 225 lb BMI 34.2 BP 136/80 Blood Pressure Location Lt brachial Position Sitting Intake Visit Reasons: Annual Exam Intake Note: Patient here for an annual physical exam Wedding Transportation Driver Required: No Accompanied by: Self / Same As Patient Allergies No Known Allergies Allergy (Verified 12/05/23 15:38) Medication List - Last Reconciled 12/05/23 by Hailee Dixon MD aspirin 81 mg PO DAILY 90 days carvedilol 25 mg PO BID losartan-hydrochlorothiazide 50-12.5 mg 1 tab PO BID 90 days rosuvastatin 10 mg PO DAILY Tobacco use date assessed: 12/05/23 Dental Screening Dental Screen Date: 12/05/23 Did you have a dental visit in the last 12 months?: Yes Did you have a dental problem in the last 6 months where you did not have access to dental care?: No Was dental information given to patient?: Patient has dentist HPI HPI Comments History of Present Illness Details This is a 53-year-old male that comes for his physical exam. Last colonoscopy was 2018 in [facility] and was normal. Has family history of colon cancer in first-degree relative. No chest pain or shortness on breath. Labs were discussed. [facility] Medical History Dyslipidemia Impaired glucose tolerance Right ventricular dilation Anxiety Piriformis syndrome Paroxysmal atrial fibrillation Essential hypertension HTN (hypertension) Disc herniation Surgical History Saphenous vein occlusion, right Previous back surgery Family History Mother Hypertension Alzheimer disease Father Hypertension Hx of colon cancer, stage III Kidney calculus Social History Housing: House Alcohol intake: current Alcohol intake frequency: a few times a month Alcohol type: beer and hard liquor Patient Tobacco Use Status: Former Tobacco user Years Smoked: 7 e-Cigarette/Vaping Use: Never Used Second Hand Smoke Exposure: No service: No Current occupational status: employed Current occupational exposures/hazards: No Cognitive needs: No Hearing needs: No Vision needs: No Questionnaire PHQ-9 Over the last 2 weeks, how often have you been bothered by any of the following problems? 1. Little interest or pleasure in doing things: not at all 2. Feeling down, depressed, or hopeless: not at all 3. Trouble falling or staying asleep, or sleeping too much: not at all 4. Feeling tired or having little energy: not at all 5. Poor appetite or overeating: not at all 6. Feeling bad about yourself - or that you are a failure or have let yourself or your family down: not at all 7. Trouble concentrating on things, such as reading the newspaper or watching television: not at all 8. Moving or speaking so slowly that other people could have noticed. Or the opposite - being so fidgety or restless that you have been moving around a lot more than usual: not at all 9. Thoughts that you would be better off or of hurting yourself in some way: not at all Total score: 0 Depression Screening Interpretation: Negative Depression Screening Done: Yes 39097 - PHQ-9 Billing: Yes Source: Developed by Drs. Alden Platt, Jada Owens, Zachary Parra and colleagues, with an educational andria from [employer]. Thrive Questionnaire Date Thrive assessed: 12/05/23 I am a: Patient What is your living situation today?: I have a steady place to live Within the past 12 months, did the food you bought not last and you didn't have the money to get more?: Never true Within the past 12 months, did you worry whether your food would run out before you got money to buy more?: Never true Do you have trouble paying for medicines?: No Do you have trouble getting transportation to medical appointments?: No Do you have trouble paying your heating and electricity bill?: No Do you have trouble taking care of your child, family member or friend?: No Do you have trouble with day-to-day activities such as bathing, preparing meals, shopping, managing finances, etc.?: No Are you currently unemployed and looking for a job?: No Are you interested in more education?: No Please select the resources that you would like help with: None Currently or been in a relationship where the following occur: No concerns reported THRIVE Score: 0 AUDIT C Alcohol Use Questionnaire (AUDIT-C) 1. How often do you have a drink containing alcohol?: Monthly or less 2. How many drinks containing alcohol do you have on a typical day when you are drinking?: 1 or 2 3. How often do you have six or more drinks on one occasion?: Never Total Score: 1 Score Reviewed/Action Taken: No NATE-7 AMB Questionnaire NATE-7 Date NATE - 7 assessed: 12/05/23 Feeling nervous, anxious, or on edge: 1 = Several days Not being able to stop or control worryin = Not at all Worrying too much about different things: 0 = Not at all Trouble relaxin = Not at all Being so restless that it is hard to sit still: 0 = Not at all Becoming easily annoyed or irritable: 0 = Not at all Feeling afraid as if something awful might happen: 0 = Not at all Total NATE-7 score (0-4 normal; 5-9 mild; 10-14 moderate; 15-21 severe): 1 Source: Developed by Drs. Alden Platt, Jada Owens, Zachary Parra and colleagues, with an educational andria from [employer]. Review of Systems Const All systems reviewed & are unremarkable except as noted in HPI and below Card Denies chest pain at rest, Denies chest pain with activity, Denies edema, Denies irregular heart rhythm, Denies claudication, Denies dyspnea, Denies dyspnea on exertion, Denies orthopnea, Denies paroxysmal nocturnal dyspnea and Denies slow heart rate Resp Denies cough, Denies dyspnea and Denies dyspnea on exertion GI Denies abdominal pain, Denies change in bowel habits, Denies excessive flatus, Denies nausea and Denies vomiting Denies urinary hesitancy, Denies urinary incontinence and Denies urinary urgency Musc Denies abnormal gait, Denies atrophy, Denies deformity and Denies limited range of motion Neuro Denies abnormal gait, Denies behavioral changes and Denies lack of coordination Psych Denies behavioral changes Physical exam (Primary Care) Vital Signs: Last Vital Signs BP 136/80 12/05/23 15:27 BMI result Body Mass Index 34.2 Tobacco/Smoking Status: Tobacco use Status Tobacco use date assessed 12/05/23 12/05/23 15:31 Patient Tobacco Use Status Former Tobacco user 12/05/23 15:31 e-Cigarette/Vaping Use Never Used 12/05/23 15:31 PHQ-9: PHQ-9 Score PHQ-9: Total score 0 12/05/23 15:42 Depression Screening Interpretation: Negative Thrive Assessment: Date of Thrive Assessment Date Thrive assessed 12/05/23 12/05/23 15:31 Currently or been in a relationship where the following occur: No concerns reported HENMT Head: Yes normal to inspection, Yes normocephalic and Yes atraumatic Ears: external ears normal Eyes General: appearance normal, both eyes and all related structures Eyelids: Yes eyelids normal Conjunctivae: conjunctivae normal Neck Neck: Yes normal visual inspection and Yes supple Resp Effort & Inspection: normal respiratory effort Auscultation: clear to auscultation bilaterally Cardio Jugular venous distension: no JVD Rate: regular rate Rhythm: regular rhythm Heart sounds: S1 normal heart sound present and S2 normal heart sound present GI Inspection: Yes normal to inspection Palpation (GI): Soft to palpation and nontender Auscultation: normal bowel sounds Skin General skin exam: no rashes or lesions noted Neuro General: no focal motor deficits Extrem General: Yes full ROM Psych Appearance: grossly normal Assessment and Plan Assessment & Plan (1) Physical exam: Code(s): Z00.00 - Encounter for general adult medical examination without abnormal findings Plan: Repeat in a year. (2) Paroxysmal atrial fibrillation: Code(s): I48.0 - Paroxysmal atrial fibrillation Plan: Continue carvedilol. Follow-up with Cardiology. Orders: Referrals Open Access Screening Colonoscopy Referral Z12.11 - Encounter for screening for malignant neoplasm of colon Coding Level of Care Code Est Pt Prev Care 40-64y(31103) Diagnoses Physical exam Z00.00 Paroxysmal atrial fibrillation I48.0 Time Spent (min) 31
== END 2023-12-05 15:55 | disposition home or self-care (01) ==
PROVIDERS: PCP Internal Medicine; Visit Provider Internal Medicine
DX: Z00.00 Encounter for general adult medical examination without abnormal findings (principal); I48.0 Paroxysmal atrial fibrillation
CPT/HCPCS: 99396

== ENCOUNTER 2024-04-09 15:36 | Outpatient (AMB) | payer OTHER, SELFPAY ==
[2024-04-09 15:40] VITALS: BP 140/72; PULSE 83; BMI 35.3
--- NOTE | 2024-04-09 15:40 | MHC.OFFVIS ---
Vital Signs 04/09/24 15:40 Height 5 ft 8 in Weight 232 lb 5.875 oz BMI 35.3 BP 140/72 H Blood Pressure Location Lt brachial Position Sitting Pulse 83 Pulse Source Pulse Oximeter Intake Visit Reasons: 3 month follow-up after stress echo Intake Note: 3 mth f/up-after stress echo Bridge Rigger Required: Yes Bridge Rigger Language: Metal Alloy Scientist Name: [email or web address] [id number]/[email or web address] Accompanied by: Self / Same As Patient Allergies No Known Allergies Allergy (Verified 12/05/23 15:38) Medication List - Last Reconciled 04/09/24 by Christiano Saha MD aspirin 81 mg PO DAILY 90 days carvedilol 25 mg PO BID losartan-hydrochlorothiazide 50-12.5 mg 1 tab PO BID 90 days rosuvastatin 10 mg PO DAILY HPI Comments Details: 54-year-old gentleman here for follow-up. He has background history of hypertension. He has some palpitation and tachycardia and was worried about atrial fibrillation. EKG previously has shown no evidence of AFib. Echocardiography which showed normal LV function for moderately dilated right ventricle. Also there was concern for fibroelastoma of the aortic valve. He underwent MRI of his heart which showed normal left ventricular right ventricular function and right ventricle was at upper limit of normal. No fibroelastoma seen. He was advised to start baby aspirin. He has been on carvedilol and losartan-hydrochlorothiazide combination for blood pressure control. 06/01/2023: He returns for follow-up. His blood pressure in the office is 160/70. He previously had elevated cholesterol and was advised to increase his rosuvastatin from 10-40 mg but he repeated his LDL cholesterol again 2 days after appointment and total cholesterol was 133, triglycerides 64 and LDL 82. It appears he continued rosuvastatin 10 mg after that. He also had repeat cholesterol in January 2023 with total cholesterol 179, LDL 111, triglycerides 58 and HDL 57. He had COVID-19 infection in last week of April 2023. He said he was given Paxlovid but he did not use any wfzj-ipd-uorjiqg medications. He said he has been noticing that his blood pressure at home is high and blood pressure readings are 150s to 160s systolic. He had blood pressure 160/70 initially but repeat manual check was 142/72. He is denying any other symptoms currently. 10/05/23: He is here for f/u. BP elevated. He has inferior T wave inversions. Occasionally feels dyspnea. No CP. 04/09/2024: He returns for follow-up. He had abnormal ECG on last visit with inferior T-wave inversions. He was referred for exercise stress test. He was able to exercise for 12 minutes on treadmill without any chest pain or shortness of breath. No significant ischemic changes were noted. He had stress images which were normal pre and post exercise. Blood pressure is mildly elevated today but his home blood pressure readings are all normal. He has been taking medicines regularly. Denying any symptoms on follow-up. Updated him about the stress test results. [facility] Medical History Dyslipidemia Impaired glucose tolerance Right ventricular dilation Anxiety Piriformis syndrome Paroxysmal atrial fibrillation Essential hypertension HTN (hypertension) Disc herniation Surgical History Saphenous vein occlusion, right Previous back surgery Family History Mother Hypertension Alzheimer disease Father Hypertension Hx of colon cancer, stage III Kidney calculus Social History Housing: House Alcohol intake: current Alcohol intake frequency: a few times a month Alcohol type: beer and hard liquor Patient Tobacco Use Status: Former Tobacco user Years Smoked: 7 e-Cigarette/Vaping Use: Never Used Second Hand Smoke Exposure: No service: No Current occupational status: employed Current occupational exposures/hazards: No Cognitive needs: No Hearing needs: No Vision needs: No Review of Systems Const Denies chills, Denies fatigue, Denies fever(s), Denies frequent falls, Denies weakness, Denies weight gain and Denies weight loss ENT Denies dizziness Card Denies chest pain, Denies leg edema, Denies lightheadedness, Denies palpitations, Denies dyspnea and Denies dyspnea on exertion Resp Denies cough, Denies dyspnea and Denies dyspnea on exertion GI Denies hematochezia Musc Denies abnormal gait, Denies muscle weakness, Denies numbness, Denies radiating pain into limb and Denies tingling Neuro Denies abnormal gait, Denies dizziness, Denies frequent falls, Denies numbness, Denies tingling and Denies weakness Endo Denies fatigue and Denies palpitations Physical Exam Vital Signs: Last Vital Signs Pulse 83 04/09/24 15:40 BP 140/72 H 04/09/24 15:40 BMI result Body Mass Index 35.3 GENERAL APPEARANCE: in no acute distress, pleasant. NECK: no carotid bruit, no jugular venous distention. SKIN: no suspicious lesions, warm and dry. HEART: no murmurs, regular rate and rhythm. LUNGS: clear to auscultation bilaterally. ABDOMEN: soft, nontender. EXTREMITIES: no edema. PERIPHERAL PULSES: equal. NEUROLOGIC: No gross deficits, AAO X 3 Assessment & Plan Assessment & Plan (1) HTN (hypertension): Code(s): I10 - Essential (primary) hypertension Category: Medical Plan Pleasant 54-year-old gentleman who is here for follow-up. He has background history of hypertension and hyperlipidemia. He is on Crestor 10 mg daily. Blood pressure is mildly elevated but his home blood pressure readings are fine. He is taking carvedilol 25 mg twice a day and losartan hydrochlorothiazide combination 50-12.5 mg twice a day. He had EKG changes noted in inferior leads and underwent stress echocardiogram which was normal. He is denying any symptoms on follow-up and continues to do well. Follow-up with us in 6 months. Thank you for allowing me to participate in the care of your patient. Please feel free to contact me if you have any questions. Coding Level of Care Code Est Pt Level 4 (33206) Diagnoses HTN (hypertension) I10
== END 2024-04-09 15:57 | disposition home or self-care (01) ==
PROVIDERS: PCP Internal Medicine; Visit Provider Internal Medicine Cardiovascular Disease
DX: I10 Essential (primary) hypertension (principal)
CPT/HCPCS: 99214

== ENCOUNTER → 2024-04-09 15:36 | Outpatient (BNVA) | payer OTHER, SELFPAY | PROVIDERS: PCP Internal Medicine; Visit Provider Internal Medicine Cardiovascular Disease | DX: I10 Essential (primary) hypertension (principal); R00.2 Palpitations | CPT/HCPCS: 99212 ==

== ENCOUNTER 2024-06-15 06:26 | Emergency (ER) | payer OTHER, SELFPAY ==
--- NOTE | ~2024-06-15 | XR_ITS ---
CLINICAL HISTORY: fall. pain 3 views sacrum and coccyx Comparison: None Findings There is mild posterior subluxation of the coccyx. Mild to moderate degenerative changes are seen at L5/S1 and in bilateral SI joints. IMPRESSION: Mild posterior subluxation of the coccyx. This document has been electronically signed by: Truong Chambers on 06/15/2024 07:11:54
[2024-06-15 06:29] VITALS: BP 157/65; PULSE 82; RESP 20; TEMP 36.9; O2SAT 97; BMI 34.2
[2024-06-15 10:41] VITALS: BP 183/76; PULSE 85; RESP 17; O2SAT 98
[2024-06-15 10:44] VITALS: TEMP 37.2
--- NOTE | 2024-06-15 12:42 | ED_ITS ---
HPI - General Adult General Chief complaint: Fall Stated complaint: injury at work Time Seen by Provider: 06/15/24 12:02 Source: patient Mode of arrival: ambulatory Limitations: no limitations History of Present Illness ED Provider: Carter Murillo HPI narrative: 54-year-old male history of hypertension proximal AFib, high cholesterol, and anxiety presents to ED for coccyx pain since yesterday. 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 Patient denies hitting head or loss of consciousness. Patient denies any abdominal pain, rectal bleeding, vomiting blood, blood from ears, chest pain, shortness of breath, urinary/bowel incontinence, numbness/tingling of extremities, or trouble walking. Related Data Previous Rx's ?Medication ?Instructions ?Recorded rosuvastatin 10 mg tablet 10 mg PO DAILY #90 tabs 04/22/23 losartan 50 mg-hydrochlorothiazide 1 tab PO BID 90 days #180 tabs 10/05/23 12.5 mg tablet carvedilol 25 mg tablet 25 mg PO BID #100 tabs 01/16/24 aspirin 81 mg tablet,delayed 81 mg PO DAILY 90 days #90 tabs 01/19/24 release Donut pillow #1 ea 06/15/24 acetaminophen 325 mg tablet 325 mg PO QID PRN pain 7 days #28 06/15/24 (Tylenol) tabs docusate sodium 100 mg capsule 100 mg PO BID 5 days #10 caps 06/15/24 (Colace) sennosides 8.8 mg/5 mL oral syrup 10 ml PO BEDTIME PRN constipation 06/15/24 (senna) 5 days #120 mL Allergies Allergy/AdvReac Type Severity Reaction Status Date / Time No Known Allergies Allergy Verified 06/15/24 06:30 Review of Systems 2 Review of Systems: coccyx pain Yes all other systems are reviewed and are negative [facility] Past Medical History Medical History Dyslipidemia Impaired glucose tolerance Right ventricular dilation Anxiety Piriformis syndrome Paroxysmal atrial fibrillation Essential hypertension HTN (hypertension) Disc herniation Surgical History Saphenous vein occlusion, right Previous back surgery Family History Family History Mother Hypertension Alzheimer disease Father Hypertension Hx of colon cancer, stage III Kidney calculus Social History Social History Housing: House Alcohol intake: current Alcohol intake frequency: a few times a month Alcohol type: beer and hard liquor Patient Tobacco Use Status: Former Tobacco user Years Smoked: 7 e-Cigarette/Vaping Use: Never Used Second Hand Smoke Exposure: No Advance Directives: No Advance Directives Information Provided: Yes service: No Current occupational status: employed Current occupational exposures/hazards: No Cognitive needs: No Hearing needs: No Vision needs: No Physical Exam ED Vital Signs: Vital Signs - 24 hr 06/15/24 06:29 06/15/24 10:41 06/15/24 10:44 Temperature 98.4 F 98.9 F Pulse Rate 82 85 Respiratory Rate 20 17 Blood Pressure 157/65 H 183/76 H Pulse Oximetry 97 98 Oxygen Delivery Method Room Air Room Air 06/15/24 13:44 Temperature 98.9 F Pulse Rate 78 Respiratory Rate 20 Blood Pressure 138/79 Pulse Oximetry 98 Oxygen Delivery Method Room Air BMI result Body Mass Index 34.2 Const General: cooperative, healthy appearing, comfortable, no acute distress, well developed, alert, awake and Physically active Orientation/consciousness: patient oriented x3 HENMT Head: Yes normal to inspection, Yes No palpable skull fracture present, Yes normocephalic and Yes atraumatic Ears: hearing grossly normal bilaterally, external ears normal, TM's normal bilaterally, TM normal on the right, TM normal on the left, EAC's normal and mastoids normal Throat: Yes posterior oropharynx normal, Yes tonsils normal and Yes uvula midline Eyes General: appearance normal, both eyes and all related structures Neck Neck: Yes normal visual inspection, Yes full ROM, Yes no lymphadenopathy, Yes no meningeal signs, Yes trachea midline, Yes supple, No anterior neck swelling and No tender Chest Chest palpation & inspection: normal inspection of the chest and normal palpation of entire chest wall Resp Effort & Inspection: normal respiratory effort and able to speak in complete sentences Auscultation: clear to auscultation bilaterally Cardio Jugular venous distension: no JVD Heart sounds: S1 normal heart sound present and S2 normal heart sound present GI Inspection: Yes normal to inspection Palpation (GI): Soft to palpation, not firm, nontender, no guarding and not rigid General: Yes no CVA tenderness Back/Spine/Pelvis Back: no CVA tenderness and No ecchymosis Skin General skin exam: no rashes or lesions noted, elasticity normal and turgor normal Full body images: 2 1. Tenderness on palpation. Negative for ecchymosis, crepitus, deformity, erythema, hotness, coldness. Neuro General: patient oriented x3, gait normal, tone normal, moves all extremities, Normal light touch and pain sensation, no meningeal signs, no focal motor deficits and CN's II-XI intact bilaterally Extrem General: Yes normal to inspection, Yes full ROM and Yes capillary refill normal Psych Appearance: grossly normal, well kempt and not disheveled Medical Decision Making Medical Decision Making MDM Narrative: 54-year-old male presents to the ED for coccyx pain after falling yesterday. Patient denies any head trauma. Whole-body evaluated negative for life- threatening etiologies. X-ray shows mild posterior subluxation of the coccyx. Patient does not have any neuro deficits. Patient denies any urinary/bowel incontinence, numbness/tingling of the lower extremities, or numbness/tingling of genital area. Patient has normal gait. Case discussed with Dr. Nance recommends patient discharged with pain medication Colace and senna. He does not recommend any surgical intervention or reduction. Patient also should get doughnut. Patient informed to follow-up with work place connection and ortho. Patient explained worrisome signs and informed to return to the ED immediately. Not suspecting brain bleed, cervical spine fracture, or any life-threatening etiology. Patient will not be discharged with NSAIDs due to patient taking aspirin. Differential Diagnosis Differential Diagnoses: The differential diagnosis associated with the presentation includes (Fracture, dislocation) Admission/Observation Consideration of admission/observation: Escalation of care including admission/observation considered Independent Interpretation I performed an independent interpretation of an: Plain X-Ray Radiology Impression Discussion of test interpretation with radiology: I have reviewed the radiologist's reading. Independent Historian Clinical information obtained from an independent historian. History obtained from or confirmed by: Other (Patient) Prescription Management I considered prescription management with: Pain Medication Discharge Plan Discharge Clinical Impression: Subluxation of coccyx Patient Disposition: Home, Self-Care Instructions: Coccyx Injury (ED) Additional Instructions: You will need follow-up with work connection and orthopedic surgery. Return to the ED immediately for any worsening back pain, urinary/bowel incontinence, paralysis of lower extremities, numbness/tingling of lower extremities, numbness or genitals, fever, chills, nausea, vomiting, abdominal pain, headache, dizziness, or any other concerning symptoms. You will be discharged with dounut prescription to sit on. cc: Generic ED Physician; Hailee Obrien MD~ CLINICAL HISTORY: fall. pain 3 views sacrum and coccyx Comparison: None Findings There is mild posterior subluxation of the coccyx. Mild to moderate degenerative changes are seen at L5/S1 and in bilateral SI joints. IMPRESSION: Mild posterior subluxation of the coccyx. This document has been electronically signed by: Truong Chambers on 06/15/2024 07:11:54 Prescriptions: New docusate sodium [Colace] 100 mg capsule 100 mg PO BID 5 Days Qty: 10 0RF acetaminophen [Tylenol] 325 mg tablet 325 mg PO QID PRN (Reason: pain) 7 Days Qty: 28 0RF sennosides [senna] 8.8 mg/5 mL syrup 10 ml PO BEDTIME PRN (Reason: constipation) 5 Days Qty: 120 0RF (DME) Jaime pérez [facility] [place] See Rx Instructions .Route Qty: 1 0RF Rx Instructions: As directed No Action rosuvastatin 10 mg tablet 10 mg PO DAILY Qty: 90 3RF carvedilol 25 mg tablet 25 mg PO BID Qty: 100 3RF Rx Instructions: must administer with a meal/food aspirin 81 mg tablet,delayed release (DR/EC) 81 mg PO DAILY 90 Days Qty: 90 1RF losartan-hydrochlorothiazide 50-12.5 mg tablet 1 tab PO BID 90 Days Qty: 180 4RF Referrals: [facility] Orthopedic Surgeons [Provider Group] (Mild posterior subluxation of coccyx) Work Connection [Outside] (Mild posterior subluxation of coccyx) Stand Alone Forms: Work/School Release Interventions: ED Discharge Assessment Last Done: 06/15/24 13:44 Discharge Date/Time: 06/15/24 13:45 Print Language: Ukrainian
[2024-06-15 13:44] VITALS: BP 138/79; PULSE 78; RESP 20; TEMP 37.2; O2SAT 98
--- OUTSIDE RECORDS SUMMARY | 2024-06-15 14:07 | XMS_ITS | Clinical Summary ---
Demographics Address [address] [place] [address] Home Phone Preferred Language es Marital Status Scientology Affiliation Unknown Race Unknown Ethnic Group or Author Organization [facility] Address [address] [place] [address] Care Team Providers Care User Support Specialist Name Role Phone Unavailable Primary Care Provider Unavailabl e Social History Tobacco Use Types Packs/Day Years Used Date Smoking Tobacco: Never Assessed Sex and Gender Information Value Date Recorded Sex Assigned at Not on file Legal Sex Male 6:12 PM EST Gender Identity Not on file Sexual Orientation Not on file Plan of Treatment Health Maintenance Due Date Last Done Comments DTaP,Tdap,and Td Vaccines (1 - Tdap) 02/02/1991 Hepatitis B Vaccines (1 of 3 - 19+ 3-dose series) 02/02/1991 Pneumococcal Vaccine: 50+ Ye ars (1 of 1 - PCV) 02/02/2022 Zoster Vaccines (1 of 2) 02/02/2022 COVID-19 Vaccine ( - 2023-2 5 season) 2023 Influenza Vaccine (#1) 2023 HIB Vaccines Aged Out No longer eligi ble based on patient's age to complete this topic HPV Vaccines Aged Out No longer eligi ble based on patient's age to complete this topic Hepatitis A Vaccines Aged Out No long er eligible based on patient's age to complete this topic IPV Vaccines Aged Out No longer eligi ble based on patient's age to complete this topic MMR Vaccines Aged Out No longer eligi ble based on patient's age to complete this topic Meningococcal ACWY Vaccine Aged Out N o longer eligible based on patient's age to complete this topic Meningococcal B Vacine Aged Out No lo nger eligible based on patient's age to complete this topic Pneumococcal Vaccine: Pediat rics (0 to 5 Years) and At-Risk Patients (6 to 64 Years) Aged Out No longer eligible b ased on patient's age to complete this topic RSV Immunization Patients Un lima 20 months Aged Out No longer eligible b ased on patient's age to complete this topic Varicella Vaccines Aged Out No longer eligible based on patient's age to complete this topic
--- OUTSIDE RECORDS SUMMARY | 2024-06-15 14:07 | XMS_ITS | Clinical Summary ---
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 Name Role Phone Unavailable Primary Care Provider Unavailabl e Source Comments PLEASE NOTE, if this patient is a minor, it may be UNLAWFUL to discuss sensitive information that is contained in these records (such as FAMILY PLANNING, MENTAL HEALTH or SUBSTANCE ABUSE) with the minor patient's parent or other person without the patient's specific authorization.[facility] Allergies No known active allergies Medications acetaminophen (TYLENOL) 500 mg tabletIndication s:Acute right-sided low back pain, unspecified whether sciatica present Take 2 Tabs by mouth every 6 (six) hours as needed for pain 90 Tab 10/19/19 20 Active miscellaneous medical supply miscIndications: Leg swelling by miscellaneous route once daily Dispense 2 pairs of knee length compression stockings. Lifetime use. 15-20 MMHG. Wear out of Bed. DX:M79.89 Please measures legs. 2 Each 02/18/20 20 Active dilTIAZem HCL (TIAZAC) 180 mg 24 hr capsuleIndicatio ns:Essential hypertension,Atr ial fibrillation, unspecified type (HCC-CMS) Take 1 Cap by mouth once daily 90 Cap 1 02/25/20 20 Active lisinopriL 20 mg tabletIndication s:Essential hypertension Take 1 Tab by mouth every morning 90 Tab 1 03/11/20 20 Active omeprazole (PRILOSEC) [address] capsuleIndicatio ns:Atrophic gastritis without hemorrhage Take 1 Capsule by mouth every morning before breakfast 90 Capsule 1 03/28/20 20 Active apixaban (ELIQUIS) 5 mg tabIndications:E ssential hypertension,Atr ial fibrillation, unspecified type ([facility]) Take 1 Tablet by mouth 2 (two) times daily 180 Tablet 1 04/22/20 20 Active DULoxetine (CYMBALTA) [address] capsule Take 1 Capsule by mouth once daily 30 Capsule 2 04/28/19 21 Active metoprolol succinate (TOPROL-XL) 25 mg 24 hr tabletIndication s:hypertension Take 1 Tablet by mouth once daily Indications: high blood pressure 90 Tablet 1 05/22/19 21 Active Active Problems Problem Noted Date Diagnosed Date Adjustment disorder with mixed anxiety and depre ssed mood 03/27/2020 DDD (degenerative disc disease), lumbar 12/21/19 Overview (12/21/2019): CT abdomen and pelvis with intravenous contrast; dated December 17, 2019 .[facility] Impression: There is degenerative disc disease at L5-S1 causing mild central canal and bilateral neural foraminal narrowing. Laryngopharyngeal reflux 11/27/2019 Globus sensation 11/27/2019 Abnormal EKG 10/22/2019 Overview (10/22/2019): Confirmed by Anna PÉREZ, OSCAR ([id number]) on 10/21/2019 [facility] Normal sinus rhythm Left axis deviation Incomplete right bundle branch block Moderate voltage criteria for LVH, may be normal variant Abnormal ECG No previous ECGs available Atrial fibrillation ([facility]) 06/14/2019 Chronic GERD 06/14/2019 Overview (12/21/2019): Cal Guillen is a 49 [address] male seen [facility] on 12/16 for exacerbation of gastritis. Basic labs, LFTs, UA, CT abdomen/pelvis all negative. Patient was discharged home to follow up as planned with colonoscopy and upper endoscopy.which is scheduled for January 2020. CT abdomen and pelvis with intravenous contrast; dated December 17, 2019 . Technique: Helical axial sections of the abdomen and pelvis were obtained with intravenous contrast. Sagittal and coronal reformats are also obtained. Iterative reconstruction technique was employed to reduce patient radiation exposure. Clinical history: Pain. No prior study is available for comparison. Findings: Mild bibasilar dependent atelectasis is present. Fatty infiltration of the liver is noted. The gallbladder, spleen, pancreas, adrenals and kidneys are unremarkable. The appendix is within normal limits. No evidence of bowel obstruction. No evidence of diverticulosis or diverticulitis. The urinary bladder is unremarkable. There is no free fluid, free air or abscess. The aorta and inferior vena cava are unremarkable. No evidence of lymphadenopathy. There is degenerative disc disease at L5-S1 causing mild central canal and bilateral neural foraminal narrowing. Impression: No evidence of acute intra-abdominal or pelvic pathology. Fatty infiltration of the liver. Chronic LLQ pain 04/23/2019 Essential hypertension 06/03/2018 Family history of colon cancer 06/03/2018 Overview (06/03/2018): Father has colon cancer, diagnosed at 67. Last colonoscopy in [facility] in 2018- normal. Anxiety 06/03/2018 Overview (06/03/2018): Experiences GI upset when anxiety increases. Referral to [facility] 06/02. Discussed medication, patient does not want medication at this time. Immunizations Name Administration Dates Next Due Flu, Preservative Free 02/26/2020,01/25/2019,11/2018 HEP A-HEP B 07/05/2019,05/31/2019 TDAP 10/06/2018 Family History Medical History Relation Name Comments Cancer Father colon Alzheimer's Disease Mother Relation Name Status Comments Father Alive Mother Alive Social History Tobacco Use Types Packs/Day Years Used Date Smoking Tobacco: Former Cigarettes Smokeless Tobacco: Never Tobacco Cessation:Counseling Given: Yes Alcohol Use Standard Drinks/Week Comments Yes 0 (1 standard drink = 0.6 oz pur e alcohol) occasional Social Connections Answer Date Recorded Social Connections and Isolation 0 12/14/2018 Financial Resource Strain Answer Date R ecorded Financial Resource Strain 0 2018 Stress Answer Date Recorded Stress 0 12/14/2018 Physical Activity Answer Date Recorded Physical Activity 0 12/14/2018 Food Insecurity Answer Date Recorded Food 0 12/14/2018 Transportation Needs Answer Date Record ed Transportation 0 12/14/2018 Housing Stability Answer Date Recorded Housing 0 12/14/2018 Safety and Environment Answer Date Terrance rded Safety 0 12/14/2018 Utilities Answer Date Recorded Utilities 0 12/14/2018 Employment Answer Date Recorded Employment 0 12/14/2018 Sex and Gender Information Value Date Recorded Sex Assigned at Male 06/02/2018 10:51 AM PST Legal Sex Male 4:30 AM PST Gender Identity Male 06/02/2018 10:51 AM PST Sexual Orientation Lesbian or Farmer 06/02/2018 10 :51 AM PST Last Filed Vital Signs Vital Sign Reading Time Taken Comments Blood Pressure 110/86 12/21/2019 3:28 PM EDT Pulse 93 12/21/2019 3:28 PM EDT Temperature 37.1 ??C (98.8 ??F) 12/21/2019 3:28 PM ED T Respiratory Rate 16 12/21/2019 3:28 PM EDT Oxygen Saturation 96% 12/21/2019 3:28 PM EDT Inhaled Oxygen Concentration - - Weight 103 kg (227 lb) 12/21/2019 3:28 PM EDT Height 177.8 cm (5' 10 ) 12/21/2019 3:28 PM EDT Body Mass Index 32.57 12/21/2019 3:28 PM EDT Plan of Treatment Not on file Insurance [place] MED[place] DENTAL [facility] [place] [address] [place] [address] HEALTH STRATEGIES [facility] PLAN Member Subscriber Plan / Payer (Ef fective 2020-Present) Name:Cal Cox Relation to Subscriber:Self Name:Cal Cox Payer ID:[id number] Group ID:Not on file Type:Medicaid Address: [address] [address] [place] [address]
== END 2024-06-15 13:45 | disposition home or self-care (01) ==
LOC: HO.ED 13:37
PROVIDERS: Emergency Provider Emergency Medicine; PCP Internal Medicine
DX: S33.2XXA Dislocation of sacroiliac and sacrococcygeal joint, initial encounter (principal); M53.3 Sacrococcygeal disorders, not elsewhere classified; W01.0XXA Fall on same level from slipping, tripping and stumbling without subsequent striking against object, initial encounter; Y93.9 Activity, unspecified; Y92.9 Unspecified place or not applicable; Y99.0 Civilian activity done for income or pay
CPT/HCPCS: 72220; 99282; 99283

== ENCOUNTER → 2024-06-15 06:34 | Outpatient (BNV) | payer OTHER, SELFPAY | PROVIDERS: PCP Internal Medicine; Visit Provider Radiology Vascular & Interventional Radiology | DX: M53.3 Sacrococcygeal disorders, not elsewhere classified (principal); Z04.2 Encounter for examination and observation following work accident | CPT/HCPCS: 72220 ==

== ENCOUNTER 2024-08-03 08:21 | Outpatient (AMB) | payer OTHER, SELFPAY ==
[2024-08-03 08:24] VITALS: BMI 34.2
--- NOTE | 2024-08-03 08:24 | A.OFFVIS_ITS ---
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 States he slipped on ice and fell down a flight of stairs. States he is doing well and has no pain. He was using a cusion to seat on and has D/C it due to having no pain. States he is ready to return to work. 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 [facility] [place] [facility]. Allergies No Known Allergies Allergy (Verified 08/03/24 08:30) Medication List - Last Reconciled 08/03/24 by Linn Morales MD acetaminophen (Tylenol) 325 mg PO QID PRN 7 days aspirin 81 mg PO DAILY 90 days carvedilol 25 mg PO BID docusate sodium (Colace) 100 mg PO BID 5 days Donut pillow As directed losartan-hydrochlorothiazide 50-12.5 mg 1 tab PO BID 90 days HPI Comments Details: Reviewed notes from ED dated 06/15/2024. Reviewed x-ray results, described as below. He slipped and fell on his bottom. Patient denies anymore pain. He feels good. Can sit down for prolonged periods. Can drive. No numbness. No weakness. [facility] Medical History Dyslipidemia Impaired glucose tolerance Right ventricular dilation Anxiety Piriformis syndrome Paroxysmal atrial fibrillation Essential hypertension HTN (hypertension) Disc herniation Surgical History Saphenous vein occlusion, right Previous back surgery Family History Mother Hypertension Alzheimer disease Father Hypertension Hx of colon cancer, stage III Kidney calculus Social History (Updated 08/03/24 @ 08:31 by BLANCA Lindo) Housing: House Alcohol intake: current Alcohol intake frequency: a few times a month Alcohol type: beer and hard liquor Patient Tobacco Use Status: Former Tobacco user Years Smoked: 7 e-Cigarette/Vaping Use: Never Used Second Hand Smoke Exposure: No service: No Current occupational status: employed 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 Patient was appropriately conversant and oriented. Good historian. MSK: Inspection reveals appropriate head and neck positioning. No specific abnormalities found on inspection of the spine and all extremities. No pain with palpation over the lumbar area. No tenderness over SI joint. Lumbar ROM was full. Bilateral hip, knee and ankle ROM WNL. No ligamentous laxity or crepitance. No increased effusion. No tenderness over coccyx. Strength is 5/5 in all muscle groups tested. No increased tone noted. Neurological: Mood appears normal, good affect, and appropriate for the circumstances. Neurologic examination of the upper and lower extremities was nonfocal with intact sensation, muscle stretch reflexes and without focal motor deficits. Gait is non-antalgic without loss of balance. Results Reviewed Results Reviewed: I independently reviewed the results of the following: X-ray done were AP views. I do not lateral views of the coccyx, his heart to see for whether there is subluxation or fracture of the coccyx Ordering Physician: Generic ED Physician Date of Service: 06/15/24 Procedure(s): XR sacrum coccyx min 2V Accession Number(s): [id number] cc: Generic ED Physician; Hailee Obrien MD~ CLINICAL HISTORY: fall. pain 3 views sacrum and coccyx Comparison: None Findings There is mild posterior subluxation of the coccyx. Mild to moderate degenerative changes are seen at L5/S1 and in bilateral SI joints. IMPRESSION: Mild posterior subluxation of the coccyx. I reviewed records from the following: ER Assessment & Plan Assessment & Plan (1) Subluxation of coccyx: Code(s): S33.2XXA - Dislocation of sacroiliac and sacrococcygeal joint, initial encounter Category: Medical Qualifiers: Encounter type: initial encounter Qualified Code(s): S33.2XXA - Dislocation of sacroiliac and sacrococcygeal joint, initial encounter Plan Mild coccyx subluxation per radiologist's report. Patient no longer has pain. No neurologic findings on exam. He may return to work full-time on Tuesday08/06/2024 without restrictions. Assessment and plan discussed with patient, and patient was agreeable. All questions were answered thoroughly. Linn Morales MD, EDDIE Board Certified, [place] [employer] and Rehabilitation (ABPMR) Board Certified, [place] [employer] Electro[employer]ostic [employer] (ABEM) Coding Level of Care Code New Pt Level 4 (34571) Diagnoses Subluxation of coccyx, initial encounter S33.2XXA Encounter type: initial encounter
--- OUTSIDE RECORDS SUMMARY | 2024-08-03 08:25 | XMS_ITS | Clinical Summary ---
Demographics Address [address] [place] [address] Home Phone Preferred Language es Marital Status Restorationism Affiliation Unknown Race Unknown Ethnic Group or Author Organization [facility] Address [address] [place] [address] Care Team Providers Care Events Associate Name Role Phone Unavailable Primary Care Provider [...] - 2023-2 5 season) 2023 Influenza Vaccine (Season Ended) 2024 HIB Vaccines Aged Out No longer eligi [...] age to complete this topic Meningococcal B Vaccine Aged Out No l onger eligible based on patient's age to complete [...]
--- OUTSIDE RECORDS SUMMARY | 2024-08-03 08:25 | XMS_ITS | Clinical Summary ---
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 Laryngopharyngeal reflux 11/27/2019 Globus sensation 11/27/2019 Abnormal EKG 10/22/2019 Overview (10/22/2019): Confirmed by Anna PÉREZ, OSCAR ([id number]) on 10/21/2019 [facility] Normal sinus rhythm Left axis deviation Incomplete right bundle branch block Moderate voltage criteria for LVH, may be normal variant Abnormal ECG No previous ECGs available Atrial fibrillation ([facility]) 06/14/2019 Chronic GERD 06/14/2019 Overview (12/21/2019): Cal Guillen is a 49 year [address] male seen [facility] on 12/16 for exacerbation of gastritis. Basic [...] cancer, diagnosed at 69. Last colonoscopy in [facility] in 2018- normal. Anxiety 06/03/2018 Overview (06/03/2018): Experiences GI upset when anxiety increases. Referral to [facility] 06/02. Discussed medication, patient does not want medication at this time. Immunizations Immunization Administration Dates Next Due Flu, Preservative Free [...] Not on file Insurance [place] MED[place] DENT[place] [facility] [place] [address] [address] [place] [address] HEALTH STRATEGIES [facility] PLAN Member Subscriber Plan / Payer (Ef fective 2020-Present) Name:Cal Cox Relation to Subscriber:Self Name:Cal Cox Payer ID:[id number] Group ID:Not on file Type:Medicaid Address: [address] [address] [place] [address]
== END 2024-08-03 08:44 | disposition home or self-care (01) ==
LOC: HO.HOS 08:21
PROVIDERS: PCP Internal Medicine; Visit Provider Physical Medicine & Rehabilitation
DX: S33.2XXA Dislocation of sacroiliac and sacrococcygeal joint, initial encounter (principal)
CPT/HCPCS: 99203

== ENCOUNTER → 2024-08-03 08:21 | Outpatient (BNVA) | payer OTHER, SELFPAY | PROVIDERS: PCP Internal Medicine; Visit Provider Physical Medicine & Rehabilitation | DX: S33.2XXA Dislocation of sacroiliac and sacrococcygeal joint, initial encounter (principal) | CPT/HCPCS: 99202 ==

== ENCOUNTER 2024-08-20 09:26 | Emergency (ER) | payer OTHER, SELFPAY ==
--- NOTE | ~2024-08-20 | XR_ITS ---
EXAMINATION: XR SACRUM AND COCCYX CLINICAL INFORMATION: pain COMPARISON: April 14, 2025. TECHNIQUE: 2 views of the sacrum and 2 views of the coccyx were obtained. FINDINGS: Sclerosis in the left sacroiliac joint. Spondylosis at L5-S1. Spina bifida occulta S1. No acute cortical disruption. Marginal osteophyte formation at L5-S1. XR/XR sacrum coccyx min 2V IMPRESSION: Probable left-sided sacroiliitis. Spondylosis L5-S1. Electronically signed by: Keyur Connolly MD 08/20/2024 01:49 PM EDT
--- NOTE | ~2024-08-20 | XR_ITS ---
EXAMINATION: XR LUMBOSACRAL SPINE CLINICAL INFORMATION: pain COMPARISON: X-ray 14/05/2024. TECHNIQUE: Three views of the lumbosacral spine. FINDINGS: Marginal osteophyte formation and endplate sclerosis at L5-S1 and to a lesser extent L4-5. Spina bifida occulta, S1. No acute cortical disruption or malalignment. Endplate sclerosis in the lower thoracic spine vertebral bodies. No lytic or blastic lesions. Sclerosis and the inferior left sacroiliac joint.. XR/XR lumbar spine 2-3V IMPRESSION: Mild multilevel thoracolumbar spondylosis. No acute fracture or listhesis. Probable left-sided sacroiliitis . Electronically signed by: Keyur Connolly MD 08/20/2024 01:48 PM EDT
[2024-08-20 09:34] VITALS: BP 139/87; PULSE 85; RESP 18; TEMP 36.8; O2SAT 98; BMI 33.7
--- NOTE | 2024-08-20 13:11 | ED.BACK ---
HPI - Back Pain/Injury General Chief Complaint: Back Pain/Injury Stated Complaint: Lower back pain Time Seen by Provider: 08/20/24 13:11 Source: patient and RN notes reviewed Mode of arrival: ambulatory Limitations: no limitations History of Present Illness ED Provider: Yasmin Bear PA-C HPI Narrative: This is a 54-year-old male, with a past medical history of dyslipidemia, piriformis syndrome, hypertension, paroxysmal atrial fibrillation not on anticoagulation, hypertension, who presents emergency department with concerns for acute on chronic back pain. Patient was seen here in the emergency department on June 15 after a slip and fall on ice, with no fracture seen. He was cleared to go back to work after a few weeks. He states that his pain improved. He states that this past Tuesday he went to move while he was at work and felt a pain in his lumbar area of his back. He has been taking Tylenol as well as using for his symptoms which has provided him with minimal relief. He denies any fevers, chills, lower extremity weakness, numbness, tingling, urinary or bowel retention or incontinence. Pain worsens with movement. Pain starts in his bilateral low back and radiates into his buttocks. Denies any chest pain or shortness for breath. No other complaints or concerns at this time. MD elicited complaint: back pain and back injury Timing: constant Location: lumbar spine Radiation: buttocks Exacerbating factors: movement Relieving factors: immobilization Context: turning/twisting Associated symptoms: denies other symptoms Treatments prior to arrival: acetaminophen Work related injury: Yes Related Data Previous Rx's ?Medication ?Instructions ?Recorded losartan 50 mg-hydrochlorothiazide 1 tab PO BID 90 days #180 tabs 10/05/23 12.5 mg tablet carvedilol 25 mg tablet 25 mg PO BID #100 tabs 01/16/24 aspirin 81 mg tablet,delayed 81 mg PO DAILY 90 days #90 tabs 01/19/24 release Donut pillow #1 ea 06/15/24 acetaminophen 325 mg tablet 325 mg PO QID PRN pain 7 days #28 06/15/24 (Tylenol) tabs docusate sodium 100 mg capsule 100 mg PO BID 5 days #10 caps 06/15/24 (Colace) acetaminophen 500 mg tablet 1,000 mg (2 x 500 mg) PO Q6H PRN 08/20/24 (Tylenol Extra Strength) pain #30 tabs ibuprofen 600 mg tablet 600 mg PO Q6H PRN pain #30 tabs 08/20/24 lidocaine 4 % topical patch 1 patch topical DAILY PRN pain #30 08/20/24 (AsperFlex (lidocaine)) ea Allergies Allergy/AdvReac Type Severity Reaction Status Date / Time No Known Allergies Allergy Verified 08/20/24 09:39 Review of Systems Review of Systems: Constitutional: No Weight loss, No Fever, No Chills, No Night Sweats, No Fatigue, No Malaise ENT/Mouth: No Hearing loss, No Ear Pain, No Nasal Congestion, No Sinus Pain, No Hoarseness, No sore throat, No Rhinorrhea, No Swallowing Difficulty Eyes: No Eye Pain, No Swelling, No Redness, No Foreign Body, No Discharge, No Vision Changes Cardiovascular: No Chest Pain, No SOB, No Dyspnea on Exertion, No Orthopnea, No Edema, No Palpitations Respiratory: No Cough, No Sputum, No Wheezing, No Smoke Exposure, No Dyspnea Gastrointestinal: No Nausea, No Vomiting, No Diarrhea, No Constipation, No Abdominal pain, No Hematochezia, No Melena Genitourinary: No irregular bleeding, No Dysuria, No Urinary Frequency, No Hematuria, No Urinary Incontinence/retention, No Urgency, No Flank Pain, No Urinary Flow Changes, No Hesitancy Musculoskeletal: No joint pain, No Myalgias, No Joint Swelling, +back pain Skin: No Skin Lesions, No rash Neuro: No Weakness, No Numbness, No Paresthesias, No Loss of Consciousness, No Dizziness, No Headache Psych: No Anxiety/Panic, No Depression, No SI/HI/AH/VH, No Social Issues, Heme/Lymph: No Bruising, No Bleeding,No Lymphadenopathy Endocrine: No Polyuria, No Polydipsia, No Temperature Intolerance Yes all other systems are reviewed and are negative Constitutional: Constitutional: Reports as per [facility] Past Medical History Attestation statement: The following information was validated with the patient. Medical History Dyslipidemia Impaired glucose tolerance Right ventricular dilation Anxiety Piriformis syndrome Paroxysmal atrial fibrillation Essential hypertension HTN (hypertension) Disc herniation Surgical History Saphenous vein occlusion, right Previous back surgery Family History Family History Mother Hypertension Alzheimer disease Father Hypertension Hx of colon cancer, stage III Kidney calculus Social History Social History Housing: House Alcohol intake: current Alcohol intake frequency: a few times a month Alcohol type: beer and hard liquor Patient Tobacco Use Status: Former Tobacco user Years Smoked: 7 e-Cigarette/Vaping Use: Never Used Second Hand Smoke Exposure: No service: No Current occupational status: employed 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 Current occupational exposures/hazards: No Cognitive needs: No Hearing needs: No Vision needs: No Physical Exam Vital Signs: Vital Signs: Last Vital Signs Temp 98.3 F 08/20/24 15:25 Pulse 85 08/20/24 15:25 Resp 18 08/20/24 15:25 BP 139/87 08/20/24 15:25 Pulse Ox 98 08/20/24 15:25 O2 Del Method Room Air 08/20/24 15:25 BMI result Body Mass Index 33.7 Const: General: cooperative, comfortable and no acute distress Orientation/consciousness: patient oriented x3 Limitations: no limitations HEENT: Head: Yes normal to inspection, Yes normocephalic and Yes atraumatic Ears: hearing grossly normal bilaterally General nose exam: Normal external nose present Face and sinus: Yes normal facial exam Mouth: Normal oral and palatal mucosa present, oropharynx normal and moist mucous membranes Throat: Yes posterior oropharynx normal Eyes: General: appearance normal, both eyes and all related structures Eyelids: Yes eyelids normal Conjunctivae: conjunctivae normal Sclerae: sclerae normal Pupils: Equal, round and reactive pupils present EOM: EOMs intact bilaterally Neck: Neck: Yes normal visual inspection, Yes full ROM and Yes no lymphadenopathy Lymphatic: no lymphadenopathy noted Chest: Chest palpation & inspection: normal inspection of the chest Resp: Effort & Inspection: normal respiratory effort and able to speak in complete sentences Auscultation: clear to auscultation bilaterally, no crackles, no rales, no rhonchi and no wheezes Cardio: Rate: regular rate Rhythm: regular rhythm Heart sounds: S1 normal heart sound present and S2 normal heart sound present GI: Inspection: Yes normal to inspection Back/Spine/Pelvis: Other: Back with tenderness palpation along the entire low back, more pronounced on the right and left SI joints. DTRs are 2+. Strength 5/5 in lower extremities. Distal sensation circulation intact. No calf tenderness. No pedal edema noted. Skin: General skin exam: no rashes or lesions noted Trauma: no lacerations or abrasions Wounds: no wounds Neuro: General: patient oriented x3 and moves all extremities Cranial nerves: Yes Equal, round and reactive pupils present Extrem: General: Yes normal to inspection Right upper extremity: normal to inspection Left upper extremity: normal to inspection Right lower extremity: normal to inspection Left lower extremity: normal to inspection Course Reevaluation(s) Reevaluation #1: X-rays returned, revealing probable left-sided sacroiliitis, and spondylosis of the L5-S1, this is also showing multilevel thoracolumbar spondylosis, no acute fracture or listhesis noted. We will await 1/2 hour to see if symptoms have improved with Toradol and lidocaine patch. Time: 13:55 Reevaluation #2: Patient feeling much better, discharged with ibuprofen, Tylenol, and lidocaine patches. He will follow-up with the work connection. Given strict return precautions. Patient stable for discharge. Time: 15:05 Medications Administered Discontinued Medications Generic Name Dose Route Start Last Admin Trade Name Freq PRN Reason Stop Dose Admin Ketorolac Tromethamine 15 mg 08/20/24 13:28 08/20/24 13:43 Ketorolac Tromethamine 15 Mg/Ml Vial IM 08/20/24 13:29 15 mg ONCE ONE Administration Lidocaine 1 patch 08/20/24 13:28 08/20/24 13:42 Lidocaine 4 % Patch Adh..Patch TRANSDERMA 08/20/24 13:29 1 patch ONCE ONE Administration Protocol Medical Decision Making Medical Decision Making MDM Narrative: This is a 54-year-old male who presents emergency department with concerns for acute on chronic back pain. On arrival, vital signs within normal limits. He is speaking full sentences under no acute distress. This patient presents with back pain most consistent with muscle spasm. Differential diagnoses includes lumbago versus musculoskeletal spasm / strain versus sciatica.No back pain red flags on history or physical. Presentation not consistent with malignancy (lack of history of malignancy, lack of B symptoms), fracture (no trauma, no bony tenderness to palpation), cauda equina syndrome (no bowel or urinary incontinence/retention, no saddle anesthesia, no distal weakness),pulmonary embolism, renal colic, pyelonephritis (afebrile, no CVAT, no urinary symptoms). Given history of coccyx subluxation, x-ray was ordered to rule out any bony abnormalities. Will medicate with Toradol and lidocaine patches for pain. Differential Diagnosis Differential Diagnoses: The differential diagnosis associated with the presentation includes See above Radiology Impression Discussion of test interpretation with radiology: I have reviewed the radiologist's reading. Radiologist Impression: EXAMINATION: XR LUMBOSACRAL SPINE CLINICAL INFORMATION: pain COMPARISON: X-ray 14/05/2024. TECHNIQUE: Three views of the lumbosacral spine. FINDINGS: Marginal osteophyte formation and endplate sclerosis at L5-S1 and to a lesser extent L4-5. Spina bifida occulta, S1. No acute cortical disruption or malalignment. Endplate sclerosis in the lower thoracic spine vertebral bodies. No lytic or blastic lesions. Sclerosis and the inferior left sacroiliac joint.. XR/XR lumbar spine 2-3V IMPRESSION: Mild multilevel thoracolumbar spondylosis. No acute fracture or listhesis. Probable left-sided sacroiliitis . Electronically signed by: Keyur Connolly MD 08/20/2024 01:48 PM EDT RP Dictated By: Keyur Alexander MD EXAMINATION: XR SACRUM AND COCCYX CLINICAL INFORMATION: pain COMPARISON: April 14, 2025. TECHNIQUE: 2 views of the sacrum and 2 views of the coccyx were obtained. FINDINGS: Sclerosis in the left sacroiliac joint. Spondylosis at L5-S1. Spina bifida occulta S1. No acute cortical disruption. Marginal osteophyte formation at L5-S1. XR/XR sacrum coccyx min 2V IMPRESSION: Probable left-sided sacroiliitis. Spondylosis L5-S1. Electronically signed by: Keyur Connolly MD 08/20/2024 01:49 PM EDT RP Dictated By: Keyur Alexander MD Discharge Plan Discharge Clinical Impression: Back pain, Sacroiliitis Patient Disposition: Home, Self-Care Instructions: Acute Low Back Pain (ED), Sacroiliitis (ED) Additional Instructions: You were seen in the emergency department due to back pain. You have evidence of sacroiliitis, which is inflammation of the SI joints which can act the pelvis to the lower spine causing pain and stiffness. Please take Ibuprofen as prescribed, this can help decrease inflammation. Tylenol can also help with pain. Alternating between these 2 can help. In his lidocaine patches as prescribed as well. Please follow-up with your primary care physician as physical therapy can help immensely for this. If any new or worsening symptoms occur including but not limited to worsening pain, numbness tingling into your groin, urinary or bowel retention or incontinence, please seek emergent care. Prescriptions: New acetaminophen [Tylenol Extra Strength] 500 mg tablet 1,000 mg PO Q6H PRN (Reason: pain) Qty: 30 0RF ibuprofen 600 mg tablet 600 mg PO Q6H PRN (Reason: pain) Qty: 30 0RF lidocaine [AsperFlex (lidocaine)] 4 % adhesive patch,medicated 1 patch topical DAILY PRN (Reason: pain) Qty: 30 0RF No Action carvedilol 25 mg tablet 25 mg PO BID Qty: 100 3RF Rx Instructions: must administer with a meal/food aspirin 81 mg tablet,delayed release (DR/EC) 81 mg PO DAILY 90 Days Qty: 90 1RF docusate sodium [Colace] 100 mg capsule 100 mg PO BID 5 Days Qty: 10 0RF acetaminophen [Tylenol] 325 mg tablet 325 mg PO QID PRN (Reason: pain) 7 Days Qty: 28 0RF (DME) Jaime pérez Misc See Rx Instructions .Route Qty: 1 0RF Rx Instructions: As directed losartan-hydrochlorothiazide 50-12.5 mg tablet 1 tab PO BID 90 Days Qty: 180 4RF Referrals: [facility] [Outside] Stand Alone Forms: Work/School Release Interventions: ED Discharge Assessment Last Done: 08/20/24 15:25 Discharge Date/Time: 08/20/24 15:26 Print Language: Mosotho
[2024-08-20] MEDS: Lidocaine 4 % Patch ADH..PATCH 1 PATCH TRANSDERMA (13:42)
[2024-08-20] MEDS: Ketorolac Tromethamine 15 MG/ML VIAL IM (13:43)
[2024-08-20 15:25] VITALS: BP 139/87; PULSE 85; RESP 18; TEMP 36.8; O2SAT 98
--- OUTSIDE RECORDS SUMMARY | 2024-08-20 15:36 | XMS_ITS | Clinical Summary ---
Demographics Address [address] [place] [address] Home Phone Preferred Language es Marital Status Sikhism Affiliation Unknown Race Unknown Ethnic Group or Author Organization [facility] Address [address] [place] [address] Care Team Providers Care Double Backer Name Role Phone Unavailable Primary Care Provider [...]
--- OUTSIDE RECORDS SUMMARY | 2024-08-20 15:36 | XMS_ITS | Clinical Summary ---
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 Laryngopharyngeal reflux 11/27/2019 Globus sensation 11/27/2019 Abnormal EKG 10/22/2019 Overview (10/22/2019): Confirmed by Anna PÉREZ, OSCAR ([id number]) on 10/21/2019 [facility] Normal sinus rhythm Left axis deviation Incomplete right bundle branch block Moderate voltage criteria for LVH, may be normal variant Abnormal ECG No previous ECGs available Atrial fibrillation ([facility]) 06/14/2019 Chronic GERD 06/14/2019 Overview (12/21/2019): Cal Guillen is a 49 [address] male seen [facility] on 12/16 for exacerbation of gastritis. Basic [...] cancer, diagnosed at 69. Last colonoscopy in [facility] in 2018- normal. Anxiety 06/03/2018 Overview (06/03/2018): Experiences GI upset when anxiety increases. Referral to [facility] 06/02. Discussed medication, patient does not want [...] file Insurance [place] MED[place] D[place] [facility] [place] [address] [place] [address] HEALTH STRATEGIES [facility] PLAN Member Subscriber Plan / Payer (Ef fective 2020-Present) Name:Cal Cox Relation to Subscriber:Self Name:Cal Cox Payer ID:[id number] Group ID:Not on file Type:Medicaid Address: [address] [address] [place] [address]
== END 2024-08-20 15:26 | disposition home or self-care (01) ==
PROVIDERS: Emergency Provider Emergency Medicine Emergency Medical Services; PCP Internal Medicine
DX: M46.1 Sacroiliitis, not elsewhere classified (principal); M54.50 Low back pain, unspecified; M53.3 Sacrococcygeal disorders, not elsewhere classified
CPT/HCPCS: 72100; 72220; 96372; 99283; 99284; J1885

== ENCOUNTER → 2024-08-20 13:28 | Outpatient (BNV) | payer OTHER, SELFPAY | PROVIDERS: Emergency Provider Emergency Medicine Emergency Medical Services; PCP Internal Medicine; Visit Provider Radiology Diagnostic Radiology | DX: M47.815 Spondylosis without myelopathy or radiculopathy, thoracolumbar region (principal); M47.817 Spondylosis without myelopathy or radiculopathy, lumbosacral region | CPT/HCPCS: 72100; 72220 ==

== ENCOUNTER 2024-10-24 15:20 | Outpatient (AMB) | payer OTHER, SELFPAY ==
[2024-10-24 15:29] VITALS: BP 130/70; PULSE 66; BMI 34.7
--- NOTE | 2024-10-24 15:29 | MHC.OFFVIS ---
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 He has background history of hypertension. He has some palpitation and tachycardia and was worried about atrial fibrillation. EKG previously has shown no evidence of AFib. Echocardiography which showed normal LV function for moderately dilated right ventricle. Also there was concern for fibroelastoma of the aortic valve. He underwent MRI of his heart which showed normal left ventricular right ventricular function and right ventricle was at upper limit of normal. No fibroelastoma seen. He was advised to start baby aspirin. He has been on carvedilol and losartan-hydrochlorothiazide combination for blood pressure control. 06/01/2023: He returns for follow-up. His blood pressure in the office is 160/70. He previously had elevated cholesterol and was advised to increase his rosuvastatin from 10-40 mg but he repeated his LDL cholesterol again 2 days after appointment and total cholesterol was 133, triglycerides 64 and LDL 82. It appears he continued rosuvastatin 10 mg after that. He also had repeat cholesterol in January 2023 with total cholesterol 179, LDL 111, triglycerides 58 and HDL 57. He had COVID-19 infection in last week of April 2023. He said he was given Paxlovid but he did not use any gofm-uux-xejzllm medications. He said he has been noticing that his blood pressure at home is high and blood pressure readings are 150s to 160s systolic. He had blood pressure 160/70 initially but repeat manual check was 142/72. He is denying any other symptoms currently. 10/05/23: He is here for f/u. BP elevated. He has inferior T wave inversions. Occasionally feels dyspnea. No CP. 04/09/2024: He returns for follow-up. He had abnormal ECG on last visit with inferior T-wave inversions. He was referred for exercise stress test. He was able to exercise for 12 minutes on treadmill without any chest pain or shortness of breath. No significant ischemic changes were noted. He had stress images which were normal pre and post exercise. Blood pressure is mildly elevated today but his home blood pressure readings are all normal. He has been taking medicines regularly. Denying any symptoms on follow-up. Updated him about the stress test results. 10/24/2024: He is here for follow-up. Denying any chest discomfort shortness of breath. Blood pressure well controlled. [facility] Medical History Dyslipidemia Impaired glucose tolerance Right ventricular dilation Anxiety Piriformis syndrome Paroxysmal atrial fibrillation Essential hypertension HTN (hypertension) Disc herniation Surgical History Saphenous vein occlusion, right Previous back surgery Family History Mother Hypertension Alzheimer disease Father Hypertension Hx of colon cancer, stage III Kidney calculus Social History Housing: House Alcohol intake: current Alcohol intake frequency: a few times a month Alcohol type: beer and hard liquor Patient Tobacco Use Status: Former Tobacco user Years Smoked: 7 e-Cigarette/Vaping Use: Never Used Second Hand Smoke Exposure: No service: No Current occupational status: employed 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 Current occupational exposures/hazards: No Cognitive needs: No Hearing needs: No Vision needs: No Review of Systems Const Denies chills, Denies fatigue, Denies fever(s), Denies frequent falls, Denies weakness, Denies weight gain and Denies weight loss ENT Denies dizziness Card Denies chest pain, Denies leg edema, Denies lightheadedness, Denies palpitations, Denies dyspnea and Denies dyspnea on exertion Resp Denies cough, Denies dyspnea and Denies dyspnea on exertion GI Denies hematochezia Musc Denies abnormal gait, Denies muscle weakness, Denies numbness, Denies radiating pain into limb and Denies tingling Neuro Denies abnormal gait, Denies dizziness, Denies frequent falls, Denies numbness, Denies tingling and Denies weakness Endo Denies fatigue and Denies palpitations Physical Exam Vital Signs: Last Vital Signs Pulse 66 10/24/24 15:29 BP 130/70 10/24/24 15:29 BMI result Body Mass Index 34.7 GENERAL APPEARANCE: in no acute distress, pleasant. NECK: no carotid bruit, no jugular venous distention. SKIN: no suspicious lesions, warm and dry. HEART: no murmurs, regular rate and rhythm. LUNGS: clear to auscultation bilaterally. ABDOMEN: soft, nontender. EXTREMITIES: no edema. PERIPHERAL PULSES: equal. NEUROLOGIC: No gross deficits, AAO X 3 Office Procedures EKG Details: Normal sinus rhythm 66 beats per minute, left axis deviation, left ventricular hypertrophy, QTC 413 milliseconds. 22417-Pmpmkhoxjivteysyw, Complete Assessment & Plan Assessment & Plan (1) HTN (hypertension): Code(s): I10 - Essential (primary) hypertension Category: Medical Plan Pleasant 54-year-old gentleman who is here for follow-up. He has background of hypertension. Blood pressure is well controlled currently. Previous stress echocardiogram was normal. Follow up in 1 year. Coding Level of Care Code Est Pt Level 3 (75437) Diagnoses HTN (hypertension) I10 CPT Codes EKG - CPT: 06953-Vomzoldoznhdxnnvn, Complete ([id number])
--- OUTSIDE RECORDS SUMMARY | 2024-10-24 15:36 | XMS_ITS | Clinical Summary ---
Demographics Address [address] [place] [address] Home Phone Mobile Phone Email Address Preferred Language Turkish; Castilian Marital Status Jainism Affiliation Unknown Race White Ethnic Group or Author Organization [facility] Address [address] [place] [address] Care Team Providers Care Addiction Treatment Counselor Name Role Phone Unavailable Primary Care Provider [...] capsuleIndicatio ns:Essential hypertension,Atr ial fibrillation, unspecified type (CMS & HHS-HCC) Take 1 Cap by mouth once daily [...] tabIndications:E ssential hypertension,Atr ial fibrillation, unspecified type ([facility]) Take 1 Tablet by mouth 2 [...] with intravenous contrast; dated December 17, 2019 .[place] Impression: There is degenerative disc disease at L5-S1 causing mild central canal and bilateral neural foraminal narrowing. Laryngopharyngeal reflux 11/27/2019 Globus sensation 11/27/2019 Abnormal EKG 10/22/2019 Overview (10/22/2019): Confirmed by Anna PÉREZ, OSCAR ([id number]) on 10/21/2019 [facility] Normal sinus rhythm Left axis deviation Incomplete right bundle branch block Moderate voltage criteria for LVH, may be normal variant Abnormal ECG No previous ECGs available Atrial fibrillation ([facility]) 06/14/2019 Chronic GERD 06/14/2019 Overview (12/21/2019): Cal Guillen is a 49 [address] male seen [facility] on 12/16 for exacerbation of gastritis. Basic [...] cancer, diagnosed at 69. Last colonoscopy in [facility] in 2018- normal. Anxiety 06/03/2018 Overview (06/03/2018): Experiences GI upset when anxiety increases. Referral to [facility] 06/02. Discussed medication, patient does not want medication at this time. Immunizations Immunization Administration Dates Next Due Flu, Preservative Free 02/26/2020,01/25/2019,11/2018 HEP A-HEP B ([place]) 07/05/2019,05/31/2019 TDAP 10/06/2018 Family History Medical History [...] 93 12/21/2019 3:28 PM EDT Temperature 37.1 C (98.8 F) 12/21/2019 3:28 PM EDT Respiratory Rate 16 12/21/2019 3:28 PM EDT Oxygen Saturation 96% 12/21/2019 3:28 PM EDT Inhaled Oxygen Concentration - - Weight 103 kg (227 lb) 12/21/2019 3:28 PM EDT Height 177.8 cm (5' 10 ) 12/21/2019 3:28 PM EDT Body Mass Index 32.57 12/21/2019 3:28 PM EDT Plan of Treatment Not on file Insurance [place] [address] [place] [address] BEHAVIORAL HEALTH STRATEGIES [facility] PLAN Member Subscriber Plan / Payer (Ef fective 2020-Present) Name:Cal Cox Relation to Subscriber:Self Name:Cal Cox Payer ID:[id number] Group ID:Not on file Type:Medicaid Address: [address] [address] [place] [address]
--- OUTSIDE RECORDS SUMMARY | 2024-10-24 15:36 | XMS_ITS | Clinical Summary ---
Demographics Address [address] [place] [address] Home Phone Preferred Language es Marital Status Hindu Affiliation Unknown Race Unknown Ethnic Group or Author Organization [facility] Address [address] [place] [address] Care Team Providers Care Assembler Semiconductor Name Role Phone Unavailable Primary Care Provider [...]
== END 2024-10-24 16:07 | disposition home or self-care (01) ==
LOC: HO.HCS 15:20
PROVIDERS: PCP Internal Medicine; Visit Provider Internal Medicine Cardiovascular Disease
DX: I10 Essential (primary) hypertension (principal)
CPT/HCPCS: 93010; 99213

== ENCOUNTER → 2024-10-24 15:20 | Outpatient (BNVA) | payer OTHER, SELFPAY | PROVIDERS: PCP Internal Medicine; Visit Provider Internal Medicine Cardiovascular Disease | DX: I10 Essential (primary) hypertension (principal); R94.31 Abnormal electrocardiogram [ECG] [EKG] | CPT/HCPCS: 93005; 99212 ==

== ENCOUNTER 2024-12-11 06:14 | Outpatient (REF) | payer OTHER, SELFPAY ==
--- OUTSIDE RECORDS SUMMARY | 2024-12-11 06:16 | XMS_ITS | Clinical Summary ---
Demographics Address [address] [place] [address] Home Phone Preferred Language es Marital Status Judaism Affiliation Unknown Race Unknown Ethnic Group or Author Organization [facility] ity Address [address] [place] [address] Care Team Providers Care Outdoor Emergency Care Technician Name Role Phone Unavailable Primary Care Provider [...] Vaccines (1 of 2) 02/02/2022 COVID-19 Vaccine (1 - 2023-2 5 season) 2023 Depression Screening 04/25/2024 Influenza Vaccine (#1) 2024 HIB Vaccines Aged Out No longer [...]
--- OUTSIDE RECORDS SUMMARY | 2024-12-11 06:16 | XMS_ITS | Clinical Summary ---
Demographics Address [address] [place] [address] Home Phone Mobile Phone Email Address Preferred Language Tongan; Castilian Marital Status Sabianism Affiliation Unknown Race White Ethnic Group or Author Organization [facility] Address [address] [place] [address] Care Team Providers Care Sas Programmer Remote Name Role Phone Unavailable Primary Care Provider [...] tabIndications:E ssential hypertension,Atr ial fibrillation, unspecified type ([facility]) Take 1 Tablet by mouth 2 (two) [...] with intravenous contrast; dated December 17, 2019 .[facility] Impression: There is degenerative disc disease at L5-S1 causing mild central canal and bilateral neural foraminal narrowing. Laryngopharyngeal reflux 11/27/2019 Globus sensation 11/27/2019 Abnormal EKG 10/22/2019 Overview (10/22/2019): Confirmed by Anna PÉREZ, OSCAR ([id number]) on 10/21/2019 [facility] Normal sinus rhythm Left axis deviation Incomplete right bundle branch block Moderate voltage criteria for LVH, may be normal variant Abnormal ECG No previous ECGs available Atrial fibrillation ([facility]) 06/14/2019 Chronic GERD 06/14/2019 Overview (12/21/2019): Cal Guillen is a 49 [address] seen [facility] on 12/16 for exacerbation of gastritis. [...] cancer, diagnosed at 69. Last colonoscopy in [facility] in 2018- normal. Anxiety 06/03/2018 Overview (06/03/2018): Experiences GI upset when anxiety increases. Referral to [facility] 06/02. Discussed medication, patient does not [...] on file Insurance [place] [place] [address] BEHAVIORAL HEALTH STRATEGIES [facility] PLAN Member Subscriber Plan / Payer (Ef fective 2020-Present) Name:Cal Cox Relation to Subscriber:Self Name:Cal Cox Payer ID:[id number] Group ID:Not on file Type:Medicaid Address: [address] [address] [place] [address]
[2024-12-11 07:47] LABS: Alanine Aminotransferase 30 U/L (0-40); Albumin Level 4.6 g/dL (3.5-5.0); Alkaline Phosphatase 42 U/L (39-117); Anion Gap 13 (12-20); Aspartate Amino Transferase 27 U/L (5-37); Blood Urea Nitrogen 17 mg/dL (9-16); Calcium 9.6 mg/dL (8.4-10.2); Carbon Dioxide 30 mmol/L (22-29); Chloride 101 mmol/L (96-108); Cholesterol 213 mg/dL (<200); Estimated Glomerular Filt Rate > 60; HDL Cholesterol 49 mg/dL (>40); Potassium 3.9 mmol/L (3.3-5.1); Sodium 140 mmol/L (135-145); Total Protein 7.3 g/dL (6.5-8.0); Triglycerides 136 mg/dL (<150)
== END 2024-12-11 06:15 | disposition home or self-care (01) ==
LOC: HO.LAB 06:14
PROVIDERS: PCP Internal Medicine; Visit Provider Internal Medicine
DX: Z00.00 Encounter for general adult medical examination without abnormal findings (principal); I10 Essential (primary) hypertension; E78.5 Hyperlipidemia, unspecified; R10.13 Epigastric pain; R73.03 Prediabetes; I87.2 Venous insufficiency (chronic) (peripheral); E78.00 Pure hypercholesterolemia, unspecified; R73.02 Impaired glucose tolerance (oral); I48.0 Paroxysmal atrial fibrillation
CPT/HCPCS: 36415; 80053; 80061; 96127; 99212; 99396

== ENCOUNTER 2024-12-11 15:50 | Outpatient (AMB) | payer OTHER, SELFPAY ==
[2024-12-11 15:55] VITALS: BP 163/86; PULSE 85; RESP 18; O2SAT 97; BMI 35.1
--- NOTE | 2024-12-11 15:55 | MHC.PC.OV ---
Vital Signs 12/11/24 15:55 Height 5 ft 8 in Weight 231 lb BMI 35.1 BP 163/86 H Blood Pressure Location Lt brachial Position Sitting Respiration 18 Pulse 85 Pulse Source Pulse Oximeter Temp Source Temporal Artery Scan Pulse Oximetry (%) 97 Oxygen Delivery Method Room Air Intake Visit Reasons: PE Header Dock Required: No Accompanied by: Self / Same As Patient Allergies No Known Allergies Allergy (Verified 12/11/24 16:15) Medication List - Last Reconciled 12/11/24 by Hailee Dixon MD acetaminophen (Tylenol) 325 mg PO QID PRN 7 days acetaminophen (Tylenol Extra Strength) 1,000 mg (2 x 500 mg) PO Q6H PRN aspirin 81 mg PO DAILY 90 days carvedilol 25 mg PO BID Donut pillow As directed ibuprofen 600 mg PO Q6H PRN lidocaine 4% (AsperFlex (lidocaine)) 1 patch topical DAILY PRN losartan-hydrochlorothiazide 50-12.5 mg 1 tab PO BID Tobacco use date assessed: 12/11/24 Dental Screening Dental Screen Date: 12/11/24 Did you have a dental visit in the last 12 months?: Yes Did you have a dental problem in the last 6 months where you did not have access to dental care?: No Was dental information given to patient?: Patient has dentist HPI HPI Comments History of Present Illness Details The patient is a 54-year-old male presenting with an annual physical examination and management of chronic conditions. The patient has a history of essential hypertension, which has been monitored regularly by a material requirements worker. He reports that his blood pressure was high during today's visit, although previous evaluations were satisfactory, leading to annual follow-ups. The patient experiences dyspepsia, characterized by abdominal discomfort and excessive gas following meals. He notes that certain foods exacerbate the condition, and he has attempted dietary modifications to manage symptoms. The patient has been identified as prediabetic, with previous laboratory results indicating fluctuating glucose levels. He acknowledges dietary indiscretions, such as increased consumption of carbohydrates, which have impacted his glucose levels. The patient has hyperlipidemia, with recent cholesterol levels elevated to 213 mg/dL. He has been advised on dietary changes to manage his lipid profile. The patient reports a persistent skin lesion that has been present for approximately six weeks. The lesion does not bleed or itch but has not healed completely. The patient has a family history of Alzheimer's disease, hypertension, colon cancer, and diabetes, which influences his preventative care measures. He has not undergone a colonoscopy since 2018 and acknowledges the need for updated screening. [facility] Medical History (Updated 12/11/24 @ 16:33 by Hailee Dixon MD) Dyslipidemia Impaired glucose tolerance Right ventricular dilation Anxiety Piriformis syndrome Paroxysmal atrial fibrillation Essential hypertension HTN (hypertension) Disc herniation Surgical History Saphenous vein occlusion, right Previous back surgery Family History Mother Hypertension Alzheimer disease Father Hypertension Hx of colon cancer, stage III Kidney calculus Social History Housing: House Alcohol intake: current Alcohol intake frequency: a few times a month Alcohol type: beer and hard liquor Patient Tobacco Use Status: Former Tobacco user Years Smoked: 7 e-Cigarette/Vaping Use: Never Used Second Hand Smoke Exposure: No service: No Current occupational status: employed 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 1. Little interest or pleasure in doing things: not at all 2. Feeling down, depressed, or hopeless: not at all 3. Trouble falling or staying asleep, or sleeping too much: not at all 4. Feeling tired or having little energy: not at all 5. Poor appetite or overeating: not at all 6. Feeling bad about yourself - or that you are a failure or have let yourself or your family down: not at all 7. Trouble concentrating on things, such as reading the newspaper or watching television: not at all 8. Moving or speaking so slowly that other people could have noticed. Or the opposite - being so fidgety or restless that you have been moving around a lot more than usual: not at all 9. Thoughts that you would be better off or of hurting yourself in some way: not at all Total score: 0 Depression Screening Interpretation: Negative Depression Screening Done: Yes 22808 - PHQ-9 Billing: Yes Source: Developed by Drs. Alden Platt, Jada Owens, Zachary Parra and colleagues, with an educational andria from [employer]. Thrive Questionnaire Date Thrive assessed: 12/11/24 I am a: Patient What is your living situation today?: I have a steady place to live Within the past 12 months, did the food you bought not last and you didn't have the money to get more?: Never true Within the past 12 months, did you worry whether your food would run out before you got money to buy more?: Never true Do you have trouble paying for medicines?: No Do you have trouble getting transportation to medical appointments?: No Do you have trouble paying your heating and electricity bill?: No Do you have trouble taking care of your child, family member or friend?: No Do you have trouble with day-to-day activities such as bathing, preparing meals, shopping, managing finances, etc.?: No Are you currently unemployed and looking for a job?: No Are you interested in more education?: I choose not to answer this question Please select the resources that you would like help with: None Currently or been in a relationship where the following occur: No concerns reported THRIVE Score: 0 AUDIT C Alcohol Use Questionnaire (AUDIT-C) 1. How often do you have a drink containing alcohol?: 2-4 times a month 2. How many drinks containing alcohol do you have on a typical day when you are drinking?: 3 or 4 3. How often do you have six or more drinks on one occasion?: Never Total Score: 3 Score Reviewed/Action Taken: No NATE-7 AMB Questionnaire NATE-7 Date NATE - 7 assessed: 12/11/24 Feeling nervous, anxious, or on edge: 1 = Several days Not being able to stop or control worryin = Not at all Worrying too much about different things: 1 = Several days Trouble relaxin = Not at all Being so restless that it is hard to sit still: 0 = Not at all Becoming easily annoyed or irritable: 0 = Not at all Feeling afraid as if something awful might happen: 0 = Not at all Total NATE-7 score (0-4 normal; 5-9 mild; 10-14 moderate; 15-21 severe): 2 Source: Developed by Drs. Alden Platt, Jada Owens, Zachary Parra and colleagues, with an educational andria from [employer]. NATE-7 Assessment Billing NATE-7 Assessment Tool: NATE-7 Assessment 97317 Review of Systems Const All systems reviewed & are unremarkable except as noted in HPI and below Card Denies chest pain at rest, Denies chest pain with activity, Denies edema, Denies irregular heart rhythm, Denies claudication, Denies dyspnea, Denies dyspnea on exertion, Denies orthopnea, Denies paroxysmal nocturnal dyspnea and Denies slow heart rate Resp Denies cough, Denies dyspnea and Denies dyspnea on exertion GI Denies abdominal pain, Denies change in bowel habits, Denies excessive flatus, Denies nausea and Denies vomiting Physical exam (Primary Care) Vital Signs: Last Vital Signs Pulse 85 12/11/24 15:55 Resp 18 12/11/24 15:55 BP 163/86 H 12/11/24 15:55 Pulse Ox 97 12/11/24 15:55 Oxygen Delivery Method Room Air 12/11/24 15:55 BMI result Body Mass Index 35.1 BMI Assessment/Plan discussion: High BMI High, discussed plan: lifestyle, weight reduction, dietary and physical activity Tobacco/Smoking Status: Tobacco use Status Tobacco use date assessed 12/11/24 12/11/24 15:59 Patient Tobacco Use Status Former Tobacco user 12/11/24 15:59 e-Cigarette/Vaping Use Never Used 12/11/24 15:59 PHQ-9: PHQ-9 Score PHQ-9: Total score 0 12/11/24 16:17 Depression Screening Interpretation: Negative Thrive Assessment: Date of Thrive Assessment Date Thrive assessed 12/11/24 12/11/24 15:59 Currently or been in a relationship where the following occur: No concerns reported HENMT Head: Yes normal to inspection, Yes normocephalic and Yes atraumatic Ears: external ears normal Eyes General: appearance normal, both eyes and all related structures Eyelids: Yes eyelids normal Conjunctivae: conjunctivae normal Neck Neck: Yes normal visual inspection and Yes supple Resp Effort & Inspection: normal respiratory effort Auscultation: clear to auscultation bilaterally Cardio Jugular venous distension: no JVD Rate: regular rate Rhythm: regular rhythm Heart sounds: S1 normal heart sound present and S2 normal heart sound present GI Inspection: Yes normal to inspection Palpation (GI): Soft to palpation and nontender Auscultation: normal bowel sounds Skin General skin exam: no rashes or lesions noted Neuro General: no focal motor deficits Extrem General: Yes full ROM Psych Appearance: grossly normal Coding Level of Care Code Est Pt Level 4 (15395) Est Pt Prev Care 40-64y(65648) Diagnoses Physical exam Z00.00 Dyspepsia R10.13 Venous insufficiency I87.2 Pure hypercholesterolemia E78.00 Impaired glucose tolerance R73.02 Essential hypertension I10 Paroxysmal atrial fibrillation I48.0 Additional Codes NATE-7 Assessment Billing - NATE-7 Assessment Tool: NATE-7 Assessment 06219 ([id number]) PHQ-9 - 08958 - PHQ-9 Billing: Yes ([id number]) Time Spent (min) 37 Assessment & Plan Assessment & Plan (1) Physical exam: Code(s): Z00.00 - Encounter for general adult medical examination without abnormal findings Category: Medical (2) Dyspepsia: Code(s): R10.13 - Epigastric pain Category: Medical (3) Venous insufficiency: Code(s): I87.2 - Venous insufficiency (chronic) (peripheral) Category: Medical (4) Pure hypercholesterolemia: Code(s): E78.00 - Pure hypercholesterolemia, unspecified Category: Medical (5) Impaired glucose tolerance: Code(s): R73.02 - Impaired glucose tolerance (oral) Category: Medical (6) Essential hypertension: Code(s): I10 - Essential (primary) hypertension Category: Medical (7) Paroxysmal atrial fibrillation: Code(s): I48.0 - Paroxysmal atrial fibrillation Category: Medical Plan The patient will undergo a colonoscopy to update his colon cancer screening, as he has not had one since 2018. Dietary modifications are recommended to manage prediabetes and hyperlipidemia, focusing on portion control and reducing carbohydrate intake. Blood pressure will be re-evaluated in three weeks to monitor for hypertension management. The patient will be referred to gastroenterology for further evaluation of dyspepsia and to discuss dietary triggers. A vascular surgery consultation is planned to assess the persistent skin lesion, which has not healed over six weeks. Patient was informed and verbally consented to the use of an ambient scribe for clinic note documentation during this visit. Orders: Orders Lipid Panel 6 Months E78.5 - Hyperlipidemia, unspecified Comprehensive [place]. Panel Fast 6 Months R73.02 - Impaired glucose tolerance (oral) Referrals Gastroenterology Referral Z12.11 - Encounter for screening for malignant neoplasm of colon Vascular Surgery Referral I87.2 - Venous insufficiency (chronic) (peripheral) Medications: New dicyclomine 20 mg PO TID 90 tabs 0RF 30 days R10.13 - Epigastric pain
== END 2024-12-11 16:31 | disposition home or self-care (01) ==
LOC: HO.HMCH 15:51
PROVIDERS: PCP Internal Medicine; Visit Provider Internal Medicine
DX: Z00.00 Encounter for general adult medical examination without abnormal findings (principal); R10.13 Epigastric pain; I48.0 Paroxysmal atrial fibrillation; I87.2 Venous insufficiency (chronic) (peripheral); E78.00 Pure hypercholesterolemia, unspecified; R73.02 Impaired glucose tolerance (oral); I10 Essential (primary) hypertension

== ENCOUNTER 2025-02-05 09:26 | Outpatient (AMB) | payer OTHER, SELFPAY ==
[2025-02-05 09:29] VITALS: BMI 35.1
--- NOTE | 2025-02-05 09:29 | A.OFFVIS_ITS ---
Vital Signs 02/05/25 09:29 Height 5 ft 8 in Weight 231 lb BMI 35.1 Intake Visit Reasons: BUSINESS DEVELOPMENT/PCP referral for Intake Note: BUSINESS DEVELOPMENT/ PCP for for bilateral LE w/ Hx of stripping Right LE 20 yrs ago in [facility]. No pain currently but does drive 8+ hours daily and does get pain. Still Operator Brandy Required: No Accompanied by: Self / Same As Patient Allergies No Known Allergies Allergy (Verified 02/05/25 09:36) HPI HPI BUSINESS DEVELOPMENT/PCP referral for : Details: Very pleasant 55-year-old gentleman patient presents for painful varicose veins. Complaints include pain over varicosities, swelling of lower e xtremities, cramping, fatigue, and heaviness of the lower extremities. 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 It is noted more so in right leg. Patient reports previous right lower extremity vein stripping 20 years ago in [facility] Patient denies any history of DVT/ PE. Patient denies any history of phlebitis. Trial of compression includes - [id number] They now present for vascular evaluation regarding their varicose veins. [facility]LY [facility] Medical History Dyslipidemia Impaired glucose tolerance Right ventricular dilation Anxiety Piriformis syndrome Paroxysmal atrial fibrillation Essential hypertension HTN (hypertension) Disc herniation Surgical History Saphenous vein occlusion, right Previous back surgery Family History Mother Hypertension Alzheimer disease Father Hypertension Hx of colon cancer, stage III Kidney calculus Social History Housing: House Alcohol intake: current Alcohol intake frequency: a few times a month Alcohol type: beer and hard liquor Patient Tobacco Use Status: Former Tobacco user Years Smoked: 7 e-Cigarette/Vaping Use: Never Used Second Hand Smoke Exposure: No service: No Current occupational status: employed 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 Current occupational exposures/hazards: No Cognitive needs: No Hearing needs: No Vision needs: No Review of Systems Const Reports as per HPI ENT Reports no additional complaints Card Denies chest pain, Denies chest pain at rest and Denies chest pain with activity Resp Denies chest congestion and Denies cough GI Reports no additional complaints Musc Details: pain over varicosities, aching of lower extremities, swelling, cramping, heaviness and tiredness, itching Denies abnormal gait Skin/Breast Reports pruritus and Denies wounds Neuro Reports no additional complaints and Denies abnormal gait Psych Denies no additional complaints Physical Exam Vital Signs: BMI result Body Mass Index 35.1 Const General: cooperative, healthy appearing and comfortable Orientation/consciousness: oriented to person, oriented to place and oriented to time Neck Carotids: no bruits Chest Chest palpation & inspection: normal inspection of the chest and normal palpation of entire chest wall Resp Effort & Inspection: normal respiratory effort and able to speak in complete sentences Cardio Rate: regular rate Heart sounds: S1 normal heart sound present and S2 normal heart sound present Peripheral pulses: Peripheral pulses 2+ throughout GI Inspection: Yes normal to inspection Skin Other: +2 edema, large rope-like varicosities greater than 4 mm CEAP Classification C4 - skin color changes Ep - Etiology Primary As - superficial veins P - reflux General skin exam: dry skin Neuro General: oriented to person, oriented to place and oriented to time Extrem Right lower extremity: full ROM, normal capillary refill and edema Left lower extremity: full ROM, normal capillary refill and edema Psych Mental Status: mental status grossly normal Assessment & Plan Assessment & Plan (1) Varicose veins of right lower extremity with inflammation: Code(s): I83.11 - Varicose veins of right lower extremity with inflammation Category: Medical Plan: In short, the patient has evidence of venous insufficiency. I have discussed the pathophysiology with the patient. In addition I have provided informational material regarding venous disease to the patient. We have discussed conservative measures including compression, elevation, and exercise. I have also provided a handout regarding appropriate use of compression stockings and where to purchase good compression stockings as well. I have taken the liberty of ordering venous insufficiency testing with the patient. They will follow up with me after testing. The patient had an opportunity to ask questions regarding the treatment plan. All questions were answered. Imaging studies, laboratory studies and physical exam results were discussed and reviewed in detail. No major barriers to understanding were identified. The patient expressed understanding and agree ment with the above treatment plan. The patient is aware they should contact our office by phone for worsening of the current condition or the appearance of new symptoms. Thank you for allowing me to participate in the vascular care of this patient. If you have any questions or concerns regarding the treatment for the above condition please do not hesitate to contact me. The office telephone co ntact is [phone]. This note is constructed using voice recognition software. While every effort has been made to ensure accuracy, legal services manager errors may have been included. Thank you for allowing me to participate in the care of your patient. Yours sincerely, Karsten Glasgow MD, FACS, R.P.V.I. Orders: Orders US venous duplex LE BI Today I83.11 - Varicose veins of right lower extremity with inflammation Coding Level of Care Code New Pt Level 4 (79117) Diagnoses Varicose veins of right lower extremity with inflammation I83.11
--- OUTSIDE RECORDS SUMMARY | 2025-02-05 10:25 | XMS_ITS | Clinical Summary ---
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 Phone Unavailable Primary Care Provider [...] capsuleIndicatio ns:Essential hypertension,Atr ial fibrillation, unspecified type Take 1 Cap by mouth once daily [...] tabIndications:E ssential hypertension,Atr ial fibrillation, unspecified type Take 1 Tablet by mouth 2 (two) times daily 180 Tablet 1 04/22/20 Active DULoxetine (CYMBALTA) [address] capsule [...] EKG 10/22/2019 Overview (10/22/2019): Confirmed by Anna PÉREZ YUFENG ([id number]) on 10/21/2019 [facility] Normal sinus rhythm Left axis deviation Incomplete right bundle branch block Moderate voltage criteria for LVH, may be normal variant Abnormal ECG No previous ECGs available Atrial fibrillation 06/14/2019 Chronic GERD 06/14/2019 Overview (12/21/2019): Cal Guillen is a 49 [address] male seen [facility] on 12/16 for exacerbation of [...] cancer, diagnosed at 69. Last colonoscopy in [facility] in 2018- normal. Anxiety 06/03/2018 Overview (06/03/2018): Experiences GI upset when anxiety increases. Referral to [facility] 06/02. Discussed medication, patient does [...] Not on file Insurance [place] MEDICAID DENTAL [facility] [place] [address] BEHAVIORAL HEALTH STRATEGIES [facility] PLAN Member Subscriber Plan / Payer (Ef fective 2020-Present) Name:Cal Cox Relation to Subscriber:Self Name:Cal Cox Payer ID:[id number] Group ID:Not on file Type:Medicaid Address: [address] [address] [place] [address]
--- OUTSIDE RECORDS SUMMARY | 2025-02-05 10:25 | XMS_ITS | Clinical Summary ---
Demographics Address [address] [place] [address] Home Phone Preferred Language es Marital Status Shinto Affiliation Unknown Race Unknown Ethnic Group or Author Organization [facility] [employer] [facility] ity Address [address] [place] [address] Care Team Providers Care Saw Repairer Name Role Phone Unavailable Primary Care Provider [...] 02/02/2022 Zoster Vaccines (1 of 2) 02/02/2022 Depression Screening 04/25/2024 COVID-19 Vaccine (1 - 2023-2 5 season) 2024 Influenza Vaccine (#1) 2024 RSV Immunization Adult Patie nts (1 - 1-dose 75+ series) 02/02/2047 HIB Vaccines Aged Out No longer eligi [...]
== END 2025-02-05 10:01 | disposition home or self-care (01) ==
LOC: HO.HVS 09:26
PROVIDERS: PCP Internal Medicine; Visit Provider Surgery Vascular Surgery
DX: I83.11 Varicose veins of right lower extremity with inflammation (principal)
CPT/HCPCS: 99204

== ENCOUNTER → 2025-02-05 09:26 | Outpatient (BNVA) | payer OTHER, SELFPAY | PROVIDERS: PCP Internal Medicine; Visit Provider Surgery Vascular Surgery | DX: I83.11 Varicose veins of right lower extremity with inflammation (principal) | CPT/HCPCS: 99202 ==

== ENCOUNTER 2025-03-06 10:18 | Outpatient (REF) | payer OTHER, SELFPAY ==
--- NOTE | ~2025-03-06 | US_ITS ---
EXAMINATION: US LOWER EXTREMITY VENOUS (REFLUX EXAM), BILATERAL CLINICAL INFORMATION: I 83.11. COMPARISON: None. TECHNIQUE: Color flow triplex imaging and compression Doppler was performed to evaluate both the deep and the superficial systems bilaterally. To evaluate the superficial system, the examination was performed in the upright position. Color-flow Doppler ultrasound and compression ultrasound were utilized. In addition, maneuvers were utilized to demonstrate reflux. FINDINGS: 1. DEEP VENOUS ULTRASOUND OF THE RIGHT LOWER EXTREMITY: Common Femoral Vein: Compressible, normal respiratory variation and augmented flow. Femoral Vein: Compressible, normal color flow and augmentation. Popliteal Vein: Compressible, normal augmentation. Deep Reflux: There is no evidence of reflux in the deep system in either the common femoral vein, superficial femoral or the popliteal vein. There is no evidence of a White's cyst. 2. SUPERFICIAL ULTRASOUND WITH DOPPLER OF RIGHT LOWER EXTREMITY: GREAT SAPHENOUS VEIN: Saphenofemoral Junction: 0.8 cm; Reflux: 0 ms Proximal Thigh: 0.4 cm; Reflux: 0 ms Mid Thigh: 0.1 cm; Reflux: 0 ms Distal Thigh: 0.1 cm; Reflux: 0 ms At Knee: 0.1 cm; Reflux: 0 ms Proximal Calf: 0.2 cm; Reflux: 0 ms Mid Calf: 0.1 cm; Reflux: 0 ms Distal Calf: 0.1 cm; Reflux: 2588 ms DUPLICATED MEDIAL GREAT SAPHENOUS VEIN: Diameter: None imaged Reflux: NA DUPLICATED LATERAL GREAT SAPHENOUS VEIN: Diameter: None imaged Reflux: NA SMALL SAPHENOUS VEIN: Saphenopopliteal Junction: Not identified. Proximal: 0.1 cm; Reflux: 2508 ms Distal: 0.1 cm; Reflux: 0 ms VEIN OF GIACOMINI: Size: 0.2 cm. Reflux: NA PERFORATORS: Location: Great saphenous vein, proximal thigh and distal calf segments. Size: 0.2 cm. Reflux: NA VARICOSITIES: Location: None imaged. Size: NA Reflux: NA 3. DEEP VENOUS ULTRASOUND OF THE LEFT LOWER EXTREMITY: Common Femoral Vein: Compressible, normal respiratory variation and augmented flow. Femoral Vein: Compressible, normal color flow and augmentation. Popliteal Vein: Compressible, normal augmentation. Deep Reflux: There is no evidence of reflux in the deep system in either the common femoral vein, superficial femoral or the popliteal vein. There is no evidence of a White's cyst. 4. SUPERFICIAL ULTRASOUND WITH DOPPLER OF LEFT LOWER EXTREMITY: GREAT SAPHENOUS VEIN: Saphenofemoral Junction: 0.7 cm; Reflux: 0 ms Proximal Thigh: 0.5 cm; Reflux: 0 ms Mid Thigh: 0.2 cm; Reflux: 0 ms Distal Thigh: 0.2 cm; Reflux: 0 ms At Knee: 0.1 cm; Reflux: 0 ms Proximal Calf: 0.2 cm; Reflux: 0 ms Mid Calf: 0.1 cm; Reflux: 0 ms Distal Calf: 0.2 cm; Reflux: 0 ms DUPLICATED GREAT SAPHENOUS VEIN: Mid Thigh: 0.2 cm; Reflux: 0 ms Distal Thigh: 0.2 cm; Reflux: 0 ms At Knee: 0.2 cm; Reflux: 0 ms Proximal Calf: 0.3 cm; Reflux: 0 ms DUPLICATED MEDIAL GREAT SAPHENOUS VEIN: Diameter: None imaged Reflux: NA DUPLICATED LATERAL GREAT SAPHENOUS VEIN: Diameter: None imaged. Reflux: NA SMALL SAPHENOUS VEIN: Saphenopopliteal Junction: 0.2 cm; Reflux: 0 ms Proximal: 0.1 cm; Reflux: 0 ms Distal: 0.1 cm; Reflux: 0 ms VEIN OF GIACOMINI: Size: 0.2 cm. Reflux: NA PERFORATORS: Location: Small saphenous vein proximal segment. Great saphenous vein mid calf. Size: 0.18 0.3 cm respectively. Reflux: NA VARICOSITIES: Location: None Imaged Size: NA Reflux: NA US/US venous insuf bilat IMPRESSION: Right: Venous insufficiency, great saphenous vein at the level of the ankle. Venous insufficiency, small saphenous vein at the mid calf region. Perforators without reflux. Left: No venous insufficiency. Perforators without reflux. Electronically signed by: Keyur Connolly MD 03/06/2025 12:04 PM [facility]
--- OUTSIDE RECORDS SUMMARY | 2025-03-06 12:12 | XMS_ITS | Clinical Summary ---
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 Laryngopharyngeal reflux 11/27/2019 Globus sensation 11/27/2019 Abnormal EKG 10/22/2019 Overview (10/22/2019): Confirmed by Anna PÉREZ YUFENG ([id number]) on 10/21/2019 [facility] Normal sinus rhythm Left axis deviation Incomplete right bundle branch block Moderate voltage criteria for LVH, may be normal variant Abnormal ECG No previous ECGs available Atrial fibrillation 06/14/2019 Chronic GERD 06/14/2019 Overview (12/21/2019): Cal Guillen is a 49 [address] male seen [facility] on 12/16 for exacerbation of [...] cancer, diagnosed at 69. Last colonoscopy in [facility] in 2018- normal. Anxiety 06/03/2018 [...] Not on file Insurance [place] MEDICAID DENTAL [facility] DENTAL [address] [address] BEHAVIORAL HEALTH STRATEGIES [facility] PLAN Member Subscriber Plan / Payer (Ef fective 2020-Present) Name:Cal Cox Relation to Subscriber:Self Name:Cal Cox Payer ID:[id number] Group ID:Not on file Type:Medicaid Address: [address] [address] [place] [address]
--- OUTSIDE RECORDS SUMMARY | 2025-03-06 12:12 | XMS_ITS | Clinical Summary ---
Demographics Address [address] [place] [address] Home Phone Preferred Language es Marital Status Presybeterian Affiliation Unknown Race Unknown Ethnic Group or Author Organization [facility] [employer] [facility] ity Address [address] [place] [address] Care Team Providers Care Therapeutic Mentor Name Role Phone Unavailable Primary Care Provider [...] Depression Screening 04/25/2024 COVID-19 Vaccine (1 - 2024-2 6 season) 2024 Influenza Vaccine (#1) 2024 RSV [...]
== END 2025-03-06 10:19 | disposition home or self-care (01) ==
LOC: HO.US 10:18
PROVIDERS: PCP Internal Medicine; Visit Provider Surgery Vascular Surgery
DX: I83.11 Varicose veins of right lower extremity with inflammation (principal)
CPT/HCPCS: 93970

== ENCOUNTER → 2025-03-06 10:20 | Outpatient (BNV) | payer OTHER, SELFPAY | PROVIDERS: PCP Internal Medicine; Visit Provider Radiology Diagnostic Radiology | DX: I83.11 Varicose veins of right lower extremity with inflammation (principal) | CPT/HCPCS: 93970 ==